=== PATIENT | male | born 1980 | race Caucasian/White ===

== ENCOUNTER → 2017-05-20 11:52 | Outpatient (CLI) | payer BC, SELFPAY ==
[2017-05-20 12:28] LABS: Basophils # 0.1 K/mm3 (0-0.2); Basophils % 0.8 % (0.1-2.0); Eosinophils # 0.1 K/mm3 (0.0-0.4); Eosinophils % 1.2 % (0.1-12.0); Hematocrit 48.5 % (42.0-52.0); Hemoglobin 15.6 g/dL (14.1-18.0); Lymphocytes # 3.1 K/mm3 (0.7-4.5); Lymphocytes % 47.3 K/mm3 (10-50); Mean Corpuscular HGB Conc 32.2 g/dL (31.8-35.4); Mean Corpuscular Volume 93.1 fl (80-94); Mean Platelet Volume 7.8 fl (7.4-10.4); Monocytes # 0.3 K/mm3 (0.1-1.0); Monocytes % 4.8 % (1.7-9.3); Neutrophils # 3.1 K/mm3 (1.8-7.8); Neutrophils % 45.9 % (37.0-80.0); Platelet Count 221 K/mm3 (142-424); Red Blood Count 5.21 M/mm3 (4.60-6.20); Red Cell Distribution Width 13.1 % (11.5-17.5); White Blood Count 6.6 K/mm3 (4.8-10.8)
[2017-05-20 12:57] LABS: Alanine Aminotransferase 83 U/L (12-78); Albumin Level 4.3 gm/dL (3.4-5.0); Albumin/Globulin Ratio 1.2 (1.1-1.8); Alkaline Phosphatase 91 U/L (46-116); Aspartate Amino Transferase 38 U/L (15-37); Bilirubin,Total 0.5 mg/dL (0.2-1.0); Blood Urea Nitrogen 12 mg/dL (7-18); Calcium 8.9 mg/dL (8.5-10.1); Carbon Dioxide 30 mmol/L (21.0-32.0); Chloride 102 mmol/L (98-107); Creatinine,Serum 1.16 mg/dL (0.70-1.30); Estimated Glomerular Filt Rate 70 ml/min (>60); GFR (African American) 85 ML/MIN (>60); Globulin 3.7 gm/dl (1.3-3.2); Glucose 94 mg/dL (74-106); Sodium 139 mmol/L (136-145); Thyroid Stimulating Hormone 1.31 uIU/ml (0.358-3.740); Uric Acid 4.5 mg/dL (2.6-7.2)
[2017-05-23 11:52] LABS: Vitamin B12 267 pg/mL (232-1245)
== END ==
PROVIDERS: PCP Internal Medicine; Visit Provider Internal Medicine
DX: I10 Essential (primary) hypertension (principal); E53.8 Deficiency of other specified B group vitamins; R25.1 Tremor, unspecified
CPT/HCPCS: 36415; 80053; 82607; 84443; 84550; 85025

== ENCOUNTER 2019-10-15 21:19 | Emergency (ER) | payer BC, SELFPAY ==
[2019-10-15 21:31] VITALS: BP 166/91; PULSE 80; RESP 16; TEMP 36.8; O2SAT 99; BMI 30.5
--- NOTE | 2019-10-15 21:35 | CT_ITS ---
PROCEDURE: CT ABDOMEN PELVIS WO CON CLINICAL INDICATION: Kidney stone Left flank pain. Rule out kidney stone. COMPARISON: ABDPELW/O CT ABD PELVIS W/O CONTRAST from 04/12/2016 TECHNIQUE: Axial images obtained with sagittal and coronal reformats. All CT scans at the facility use one or more dose reduction, viz: automated exposure control, ma/kV adjustment per patient size (including targeted exams where dose is matched to indication, i.e. head), or iterative reconstruction technique. FINDINGS: LOWER THORAX: No acute finding. Included extent of the lung bases are clear. ABDOMEN & PELVIS: Hepatobiliary: There is significantly decreased attenuation of the liver parenchyma consistent with moderately severe steatosis. No discrete hepatic lesion is identified. The gallbladder and bile ducts are within normal limits. Normal unenhanced pancreas. The spleen is not enlarged. The adrenal glands are normal. Kidneys, ureters and bladder: Both kidneys have a normal size and morphology. There is a 3 millimeter calculus is seen in the proximal left ureter causing mild dilatation of the left renal pelvis and calyces. There is no right hydronephrosis. The urinary bladder is incompletely distended. There is no right ureteral or bladder calculus identified. Gastrointestinal: The stomach and small bowel are normal with no obstruction or inflammation. The large bowel is within normal limits, with the exception of few sigmoid diverticula without evidence for diverticulitis. Appendix appears normal. Reproductive organs: Unremarkable as visualized. Lymphatic system: There is no adenopathy demonstrated within the abdomen/pelvis. Vasculature: Normal caliber abdominal aorta. Peritoneum: No significant fluid collection. No free intraperitoneal air. Abdominal wall and musculoskeletal: Soft tissues are within normal limits. No suspicious bone lesions. A stable sclerotic focus is identified in the proximal right femoral neck likely a small bone island. IMPRESSION: 1.A small 3 millimeter calculus is seen in proximal left ureter causing mild left hydronephrosis. Mild retroperitoneal fat stranding is noted surrounding this calculus. 2. Significant hepatic steatosis. 3. Essentially otherwise unremarkable noncontrast CT exam of the abdomen/pelvis. Dictated by: Teena Henriquez 10/16/2019 09:26 Electronically signed by Teena Henriquez in [place] 10/16/2019 09:26
[2019-10-15 21:54] LABS: Microscopic, Urine URINE MICROSCOPIC (MICROSCOPIC)
[2019-10-15 21:56] LABS: Appearance,Urine CLOUDY (Clear); Blood, Urine 3+ (Negative); Color,Urine RED (Yellow); Glucose,Urine (UA) Negative (Negative); Ketones,Urine Negative (Negative); Leukocyte Esterase,Urine Negative (Negative); Nitrate,Urine Negative (Negative); PH,Urine 6.5 (5.0-8.5); Protein,Urine 1+ (Negative); Specific Gravity, Urine 1.025 (1.005-1.030); Urobilinogen,Urine 0.2 EU/dl (0.2)
[2019-10-15 22:00] LABS: Bilirubin,Urine Negative (Negative)
[2019-10-15 22:01] LABS: Bacteria,Urine 1+ /lpf; RBC,Urine TNTC #/hpf (0-3)
[2019-10-15 22:11] VITALS: BP 154/94; PULSE 82; RESP 18; O2SAT 99
[2019-10-15 22:17] LABS: Alanine Aminotransferase 60 U/L (12-78); Albumin Level 4.5 g/dl (3.5-5.0); Albumin/Globulin Ratio 1.5 (1.1-1.8); Alkaline Phosphatase 99 U/L (38-126); Amylase 105 U/L (30-110); Anion Gap 14.4 mEq/L (5-15); Aspartate Amino Transferase 53 U/L (17-59); Bilirubin,Total 0.6 mg/dl (0.2-1.3); Blood Urea Nitrogen 17 mg/dl (9-20); Calcium 9.3 mg/dl (8.4-10.2); Carbon Dioxide 30 mmol/L (22.0-30.0); Chloride 99 mmol/L (98-107); Creatinine Clearance Estimated 128 mL/min (50-200); Estimated Glomerular Filt Rate 74 ml/min (>60); GFR (African American) 89 ML/MIN (>60); Glucose 109 mg/dl (74-100); Lipase 186 U/L (23-300); Potassium 3.4 mmoL/L (3.5-5.1); Sodium 140 mmol/L (136-145); Total Protein,Serum 7.5 g/dl (6.3-8.2)
[2019-10-15 22:18] LABS: Basophils # 0.1 K/mm3 (0-0.2); Basophils % 0.5 % (0.1-2.0); Eosinophils # 0.1 K/mm3 (0.0-0.4); Eosinophils % 1.2 % (0.1-12.0); Hematocrit 39.4 % (42.0-52.0); Hemoglobin 13.7 g/dL (14.1-18.0); Lymphocytes # 3.3 K/mm3 (0.7-4.5); Mean Corpuscular HGB Conc 34.8 g/dL (31.8-35.4); Mean Corpuscular Hemoglobin 31.4 pg (27.0-31.2); Mean Corpuscular Volume 90.2 fl (80-94); Mean Platelet Volume 8.7 fl (7.4-10.4); Monocytes # 0.4 K/mm3 (0.1-1.0); Monocytes % 3.7 % (1.7-9.3); Neutrophils # 6.7 K/mm3 (1.8-7.8); Neutrophils % 63.5 % (37.0-80.0); Platelet Count 207 K/mm3 (142-424); Red Blood Count 4.37 M/mm3 (4.60-6.20); Red Cell Distribution Width 13.2 % (11.5-17.5); White Blood Count 10.6 K/mm3 (4.8-10.8)
[2019-10-15 22:34] VITALS: BP 152/84; PULSE 80; RESP 18; O2SAT 99
--- NOTE | 2019-10-15 23:01 | HMH.EDABDPAI ---
ED Disposition Clinical Impression: Calculus of kidney Disposition: Home, Self-Care Condition on Discharge: Good Instructions: DI for Acute Abdomen Additional Instructions: These follow-up with Dr. Alberts tomorrow morning for an appointment. Referrals: Charlie Grant [Primary Care Provider] - Juan José Alberts MD [Staff Physician] - - Critical Care Critical Care Time: No Attestation: On 10/15/19, the high probability of a clinically significant, sudden or life threatening deterioration of the following system(s) required my full and direct attention, intervention and personal management. The time I documented below is in addition to time spent performing reported procedures but includes the following listed in this critical care notation. Medical Decision Making - Medical Records Medical records reviewed: Yes: I reviewed the patient's medical records. - Rk Inquiry Pt receiving controlled substance: No Vital Signs: 10/15/19 21:31 10/15/19 22:11 10/15/19 22:34 Temperature 98.3 F Temperature Source Oral Pulse Rate [Right Brachial] 80 82 80 Respiratory Rate 16 18 18 Blood Pressure [Right Arm] 166/91 H 154/94 H 152/84 H Blood Pressure Mean [Right Arm] 116 114 106 Blood Pressure Source [Right Arm] Automatic Cuff Automatic Cuff Automatic Cuff Blood Pressure Position [Right Arm] Sitting Sitting Sitting 02 Sat by Pulse Oximetry 99 99 99 Oxygen Delivery Method Room Air Room Air - Lab Data Lab results reviewed: Yes: I reviewed the patient's lab results. Lab Results 10/15/19 21:49: Urine Color Red, Urine Appearance Cloudy, Urine pH 6.5, Ur Specific [place] 1.025, Urine Protein 1+, Urine Glucose (UA) Negative, Urine Ketones Negative, Urine Blood 3+, Urine Nitrate Negative, Urine Bilirubin Negative, Urine Urobilinogen 0.2, Ur Leukocyte Esterase Negative, Urine RBC Tntc, Urine WBC 3-5, Urine Bacteria 1+ 10/15/19 22:00: WBC 10.6, RBC 4.37 L, Hgb 13.7 L, Hct 39.4 L, MCV 90.2, MCH 31.4 H, MCHC 34.8, RDW 13.2, Plt Count 207, MPV 8.7, Neut % (Auto) 63.5, Lymph % (Auto) 31.0, [place] % (Auto) 3.7, Eos % (Auto) 1.2, Baso % (Auto) 0.5, Neut # (Auto) 6.7, Lymph # (Auto) 3.3, [place] # (Auto) 0.4, Eos # (Auto) 0.1, Baso # (Auto) 0.1 10/15/19 22:00: Sodium 140, Potassium 3.4 L, Chloride 99, Carbon Dioxide 30, Anion Gap 14.4, BUN 17, Creatinine 1.10, Estimated Creat Clear 128, Estimated GFR 74, Est GFR ( Amer) 89, Glucose 109 H, Calcium 9.3, Total Bilirubin 0.6, AST 53, ALT 60, Alkaline Phosphatase 99, Total Protein 7.5, Albumin 4.5, Globulin 3.0, Albumin/Globulin Ratio 1.5, Amylase 105, Lipase 186 Result diagrams: 10/15/19 22:00 10/15/19 22:00 Orders (Tests/Meds): ED MEDICATIONS Generic Name Dose Route Start Last Admin Trade Name Freq PRN Reason Stop Dose Admin Sodium Chloride 1,000 mls @ 999 mls/hr 10/15/19 21:45 10/15/19 22:05 Sod Chlor 0.9% 1000ml Bag IV 10/15/19 22:45 999 mls/hr .Q1H1M KATERIN Administration Discontinued Medications Generic Name Dose Route Start Last Admin Trade Name Freq PRN Reason Stop Dose Admin Amlodipine Besylate 10 mg 10/16/19 09:00 Norvasc 10mg Tablet PO 11/15/19 08:59 DAILY KATERIN Amlodipine Besylate 10 mg 10/15/19 22:29 10/15/19 22:30 Norvasc 5mg Tablet PO 10/15/19 22:30 10 mg ONCE ONE Administration Ketorolac Tromethamine 30 mg 10/15/19 21:36 10/15/19 22:05 Toradol 30mg/Ml Vial IV 10/15/19 21:37 30 mg ONCE ONE Administration Ondansetron HCl 4 mg 10/15/19 21:36 10/15/19 22:05 Zofran 4mg/2ml Vial IV 10/15/19 21:37 4 mg ONCE ONE Administration Tamsulosin HCl 0.4 mg 10/16/19 21:00 Flomax 0.4mg Capsule PO 11/15/19 20:59 HS KATERIN Tamsulosin HCl 0.4 mg 10/16/19 22:28 Flomax 0.4mg Capsule PO 10/16/19 22:29 HS ONE Tamsulosin HCl 0.4 mg 10/15/19 22:31 10/15/19 22:32 Flomax 0.4mg Capsule PO 10/15/19 22:32 0.4 mg HS ONE Administration ORDERS Category Date Time Status CT abdomen pelvis wo
[2019-10-15 23:04] VITALS: BP 135/72; PULSE 84; RESP 18; O2SAT 99
[2019-10-15 23:30] VITALS: BP 151/82; PULSE 73; RESP 16; TEMP 36.8; O2SAT 99
== END 2019-10-15 23:33 | disposition home or self-care (01) ==
PROVIDERS: Emergency Provider Family Medicine; PCP Internal Medicine
DX: N13.2 Hydronephrosis with renal and ureteral calculous obstruction (principal); I10 Essential (primary) hypertension; Z79.899 Other long term (current) drug therapy
CPT/HCPCS: 74176; 80053; 81001; 82150; 83690; 85025; 96365; 96375; 99283; J2405

== ENCOUNTER → 2019-12-23 12:30 | Outpatient (CLI) | payer BC, SELFPAY | PROVIDERS: PCP Internal Medicine; Visit Provider Internal Medicine | DX: Z03.818 Encounter for observation for suspected exposure to other biological agents ruled out (principal) | CPT/HCPCS: U0003 ==

== ENCOUNTER → 2020-11-02 15:09 | Outpatient (CLI) | payer BC, SELFPAY ==
[2020-11-02 15:37] LABS: Coronavirus 19, PCR Not Detected (NotDetected); Influenza A, PCR Not Detected (NotDetected); Influenza B, PCR Not Detected (NotDetected)
== END ==
PROVIDERS: PCP Internal Medicine; Visit Provider Internal Medicine
DX: Z20.822 Contact with and (suspected) exposure to COVID-19 (principal)
CPT/HCPCS: U0003

== ENCOUNTER 2021-03-19 12:40 | Emergency (ER) | payer BC, SELFPAY ==
[2021-03-19 15:20] VITALS: BP 168/106; PULSE 104; RESP 18; TEMP 37.6; O2SAT 96; BMI 31.4
--- NOTE | 2021-03-19 15:22 | HMH.EDUTC ---
[facility] [place] Impression: Bronchitis, Viral syndrome Pharyngitis Qualifiers: Pharyngitis/tonsillitis etiology: unspecified etiology Qualified Code(s): J02.9 - Acute pharyngitis, unspecified Disposition: Home, Self-Care Condition on Discharge: Good Instructions: Preventing the Spread of Coronavirus Discharge Instructions, DI for COVID-19 (Suspected or Confirmed ), DI for Pharyngitis/Tonsillopharyngitis -- Adult Additional Instructions: Drink plenty of fluids. Take tylenol or ibuprofen for pain or fever. Take the medications as directed. Follow up with your regular doctor. GO TO THE ER FOR ANY WORSENING SYMPTOMS Quarantine until you know the results of your covid-19 test. If it is positive, the health department should call you and give you further instructions about your length of Quarantine and other things. Notify your school or workplace of your results and follow their instructions regarding return to work/school. Prescriptions: Promethazine/Dextromethorphan [Promethazine-Dm Syrup] 5 ml PO Q6HP PRN #240 ml PRN Reason: Cough Transmission Status: Pending to [facility] methylPREDNISolone [Medrol] 4 mg PO DIRECTED 6 Days #21 packet Transmission Status: Pending to Clinic Pharm[facility] Azithromycin [Z-Kervin 250mg Tab*] 250 mg PO UD DOSE PK #6 tab Transmission Status: Pending to Clinic [facility] Referrals: Charlie Grant [Primary Care Provider] - Time of Disposition: 16:03 Medical Decision Making - Medical Records Medical records reviewed: No: I reviewed the patient's medical records. - Rk Inquiry Pt receiving controlled substance: No Vital Signs: 03/19/21 15:20 Temperature 99.6 F Temperature Source Oral Pulse Rate [Left] 104 H Respiratory Rate 18 Blood Pressure [Right Arm] 168/106 H Blood Pressure Mean [Right Arm] 126 02 Sat by Pulse Oximetry 96 - Lab Data Lab results reviewed: Yes: I reviewed the patient's lab results. Lab Results 03/19/21 15:23: Influenza Type A Ag Negative, Influenza Type B Ag Negative 03/19/21 15:23: Strep Scn Rapid Clinic Negative Orders (Tests/Meds): ORDERS Category Date Time Status Full Resp Panel w/COVID ([facility]) Routine Lab 03/19/21 15:20 Received Strep Screen Confirmation Stat Micro 03/19/21 15:23 [place] [facility] [place] - General Stated complaint: fever, sore throat, cough Time Seen by Provider: 03/19/21 15:22 - History of Present Illness Provider Complaint: He states that for the past 3 days he has had chest and sinus congestion. He has a low grade fever and sore throat also. He has been vaccinated against covid-19. - Related Data Home Medications Medication Instructions Recorded Confirmed Bisoprolol/Hydrochlorothiazide 1 each PO DAILY 07/15/17 10/16/19 [Bisoprolol-Hctz 10-6.25 mg Tab] Buspirone HCl [Buspar 10mg 0 mg PO DAILY 07/15/17 10/16/19 tablet] Ergocalciferol (Vitamin D2) 400 unit PO WEEKLY 07/15/17 10/16/19 [Vitamin D] Losartan/Hydrochlorothiazide 1 each PO DAILY 07/15/17 10/16/19 [Losartan-Hctz 50-12.5 mg Tab] allopurinoL [Allopurinol 300mg 300 mg PO DAILY 07/15/17 10/16/19 tablet] Previous Rx's Medication Instructions Recorded Azithromycin [Z-Kervin 250mg Tab*] 250 mg PO UD DOSE PK #6 tab 03/19/21 Promethazine/Dextromethorphan 5 ml PO Q6HP PRN #240 ml 03/19/21 [Promethazine-Dm Syrup] methylPREDNISolone [Medrol] 4 mg PO DIRECTED 6 Days #21 03/19/21 packet Allergies Allergy/AdvReac Type Severity Reaction Status Date / Time No Known Allergies Allergy Verified 10/16/19 14:36 [facility] History - Hepatitis A Screen Attestation statement:: This patient has been screened for Hepatitis A risk factors. I have reviewed the patient's past medical history: Yes Medical History: Reports:: Hypertension Other Medical History: Reports: Arthritis Other Surgeries: Yes: No Previous Surgery Amputation: No Fractures: No - Social History Smoking Status: Never
[2021-03-19 15:35] LABS: UTC Influenza A Antigen Negative (Negative); UTC Strep Screen (Rapid) Negative (Negative)
[2021-03-19 15:36] LABS: Adenovirus,PCR Not Detected (NotDetected); Bordetella Pertussis Not Detected (NotDetected); Chlamydophila Pneumoniae, PCR Not Detected (NotDetected); Coronavirus 229E Not Detected (NotDetected); Coronavirus NL63 Not Detected (NotDetected); Coronavirus OC43 Not Detected (NotDetected); Coronovirus HKU1,PCR Not Detected (NotDetected); Human Metapneumovirus Not Detected (NotDetected); Influenza A, PCR Not Detected (NotDetected); Influenza AH1, 2009 Not Detected (NotDetected); Influenza AH1, PCR Not Detected (NotDetected); Influenza AH3,PCR Not Detected (NotDetected); Influenza B, PCR Not Detected (NotDetected); Mycoplasma Pneumoniae, PCR Not Detected (NotDetected); Parainfluenza 1, PCR Not Detected (NotDetected); Parainfluenza 2, PCR Not Detected (NotDetected); Parainfluenza 3, PCR Not Detected (NotDetected); Parainfluenza 4, PCR Not Detected (NotDetected); Respiratory Syncytial Virus Not Detected (NotDetected); Rhinovirus/Enterovirus Not Detected (NotDetected)
[2021-03-19 15:36] LABS: UTC Influenza B Antigen Negative (Negative)
[2021-03-19 16:28] VITALS: BP 168/106; PULSE 104; RESP 18; TEMP 37.6
[2021-03-19 17:39] LABS: Coronavirus 19, PCR Detected (NotDetected)
== END 2021-03-19 16:34 | disposition home or self-care (01) ==
PROVIDERS: Emergency Provider Nurse Practitioner Family; PCP Internal Medicine
DX: J20.9 Acute bronchitis, unspecified (principal); U07.1 COVID-19; I10 Essential (primary) hypertension
CPT/HCPCS: 87581; 87632; 87798; 87804; 87880; 96372; 99202; C9803; G0463; J0696; U0003; U0005

== ENCOUNTER 2021-03-20 11:55 | Outpatient (CLI) | payer BC, SELFPAY ==
[2021-03-20] VITALS (9 sets, daily range): BP systolic 118–141; BP diastolic 74–93; PULSE 58–71; RESP 18; TEMP 37; O2SAT 95–97
== END 2021-03-20 15:03 | disposition home or self-care (01) ==
LOC: COVID.OUT 11:56
PROVIDERS: PCP Internal Medicine; Visit Provider Nurse Practitioner Family
DX: U07.1 COVID-19 (principal); Z23 Encounter for immunization
CPT/HCPCS: 96365

== ENCOUNTER → 2021-11-15 12:04 | Outpatient (CLI) | payer BC, SELFPAY ==
[2021-11-15 13:27] LABS: Basophils # 0.1 K/mm3 (0-0.2); Basophils % 1.1 % (0.1-2.0); Eosinophils # 0.1 K/mm3 (0.0-0.4); Eosinophils % 1.7 % (0.1-12.0); Hematocrit 43.3 % (42.0-52.0); Hemoglobin 13.9 g/dL (14.1-18.0); Lymphocytes # 3.1 K/mm3 (0.7-4.5); Lymphocytes % 48.4 % (10-50); Mean Corpuscular HGB Conc 32.2 g/dL (31.8-35.4); Mean Corpuscular Hemoglobin 30.5 pg (27.0-31.2); Mean Corpuscular Volume 94.8 fl (80-94); Mean Platelet Volume 8.8 fl (7.4-10.4); Monocytes # 0.3 K/mm3 (0.1-1.0); Monocytes % 4.3 % (1.7-9.3); Neutrophils # 2.9 K/mm3 (1.8-7.8); Neutrophils % 44.5 % (37.0-80.0); Platelet Count 255 K/mm3 (142-424); Red Blood Count 4.57 M/mm3 (4.60-6.20); Red Cell Distribution Width 13.4 % (11.5-17.5); White Blood Count 6.5 K/mm3 (4.8-10.8)
[2021-11-15 14:06] LABS: Potassium 3.9 mmoL/L (3.5-5.1)
[2021-11-15 14:08] LABS: Alanine Aminotransferase 47 U/L (12-78); Albumin Level 4.5 g/dl (3.5-5.0); Alkaline Phosphatase 115 U/L (38-126); Aspartate Amino Transferase 46 U/L (17-59); Bilirubin,Total 0.4 mg/dl (0.2-1.3); Blood Urea Nitrogen 12 mg/dl (9-20); Carbon Dioxide 30 mmol/L (22.0-30.0); Estimated Glomerular Filt Rate 106 ml/min (>60); GFR (African American) 128 ML/MIN (>60); Globulin 2.3 g/dL (1.3-3.2); Total Protein,Serum 6.8 g/dl (6.3-8.2)
[2021-11-15 14:09] LABS: Calcium 9.1 mg/dl (8.4-10.2); Chol/HDL Ratio 6.6 (1-3.5); Cholesterol 204 mg/dl (140-200); Glucose 100 mg/dl (74-100); HDL Cholesterol 31 mg/dl (40-60); Triglycerides 166 mg/dl (30-150); VLDL Cholesterol 33 mg/dL (0-40)
[2021-11-15 14:46] LABS: Anion Gap 12.9 mEq/L (5-15); Chloride 103 mmol/L (98-107); Sodium 142 mmol/L (136-145)
[2021-11-18 08:20] LABS: Direct LDL Cholesterol 127 mg/dL (100-129)
== END ==
PROVIDERS: PCP Internal Medicine; Visit Provider Internal Medicine
DX: I10 Essential (primary) hypertension (principal); K76.0 Fatty (change of) liver, not elsewhere classified; E53.8 Deficiency of other specified B group vitamins; E78.5 Hyperlipidemia, unspecified; M10.9 Gout, unspecified
CPT/HCPCS: 80053; 80061; 84550; 85025

== ENCOUNTER → 2021-11-24 13:25 | Outpatient (CLI) | payer BC, SELFPAY ==
--- NOTE | 2021-11-24 13:28 | CA_ITS ---
APPROVED REPORT EXAM: Comprehensive 2D, Doppler, and color-flow Echocardiogram [employer] Lecturer: Dominique Sheldon RVT Ht: 6 ft 1 in Wt: 232lbs BSA: 2.29 BP: 136/90 mmHg Indications: HOLLIS,HTN 2D Dimensions LVOT 1.95 cm (M/F) 1.5-2.5 LA Volume 30.70 mL LA Volume Index 13.40 mL/m2 (M/F) 16-34 M-Mode Dimensions RVDd 3.31 cm (0.9-2.6) LA Diam 3.96 cm (1.9-4.0) LVDd 4.90 cm (3.5-5.7) Ao Diam 3.11 cm (2.0-3.7) LVDs 3.00 cm (3.5-5.7) IVSd 1.22 cm (0.6-1.1) PWd 1.03 cm (0.6-1.1) EF (Teich) 69.00% FS 38.80% EDV (Teich) 112.80 mL TAPSE 2.29 (<1.7) ESV (Teich) 35.00 mL LV Diastology E Decel Time 150.00 (160-240 msec) E/A Ratio 1.5 MED E' 8.20 (< 7 cm/sec) E'/MED E' Ratio 12.00 (>14) LAT E' 15.40 (<10 cm/sec) E/LAT E' Ratio 6.39 (>14) Aortic Valve AO Peak GR. 7.10 mmHg Mitral Valve MV E Max Sandro. 98.00 (40-130 cm/s) MV A Velocity 66.00 (40-130 cm/s) E/A Ratio 1.48 MV Decel. Time 150.00 (160-240 ms) MV PHT 44.00 ms Pulmonary Valve PV Peak Velocity 82.00 (50-150 cm/s) Tricuspid Valve TR P. Velocity 209.00 cm/s RAP Estimate 10.00 mmHg RVSP 27.40 mmHg Left Ventricle Left atrium is normal size, left ventricle is normal size, there is no concentric left ventricular hypertrophy, estimated ejection fraction 55% with no regional wall motion abnormality, diastolic parameters are within normal range. Right Ventricle Right atrium and right ventricle are normal size and contractility. Aortic Valve Aortic valve is grossly normal, there is no aortic stenosis or aortic insufficiency. Mitral Valve Mitral valve grossly normal, there is trace mitral regurgitation. Tricuspid Valve Tricuspid valve grossly normal, there is trace tricuspid regurgitation, tricuspid regurgitation jet velocity is inadequate for calculation of the right ventricular systolic pressure. Pulmonic Valve Pulmonic valve is poorly visualized. Great Vessels Aortic root is normal size. Inferior vena cava is normal size with normal inspiratory collapse. Pericardium No significant pericardial effusion noted. Conclusion 1. Normal left ventricular size preserved left ventricular systolic function, estimated ejection fraction 55% with no regional wall motion abnormality, diastolic parameters are within normal range. 2. Trace mitral and tricuspid regurgitation. 3. No significant pericardial effusion noted. 4. Inferior vena cava is normal size with normal inspiratory collapse. Electronically signed by : Carlos Weston MD 11/24/2021 14:37:26
== END ==
LOC: RT 13:26
PROVIDERS: PCP Internal Medicine; Visit Provider Internal Medicine
DX: R06.09 Other forms of dyspnea (principal); I10 Essential (primary) hypertension
CPT/HCPCS: 93306

== ENCOUNTER 2023-06-28 12:26 | Outpatient (CLI) | payer BC, SELFPAY ==
[2023-06-28 14:40] LABS: Basophils # 0.1 K/mm3 (0-0.2); Basophils % 1.3 % (0.1-2.0); Eosinophils # 0.1 K/mm3 (0.0-0.4); Eosinophils % 1.6 % (0.1-12.0); Hematocrit 45.7 % (42.0-52.0); Hemoglobin 14.5 g/dL (14.1-18.0); Lymphocytes # 3.5 K/mm3 (0.7-4.5); Lymphocytes % 51.2 % (10-50); Mean Corpuscular HGB Conc 31.7 g/dL (31.8-35.4); Mean Corpuscular Hemoglobin 30.5 pg (27.0-31.2); Mean Corpuscular Volume 96.2 fl (80-94); Mean Platelet Volume 8.6 fl (7.4-10.4); Monocytes # 0.4 K/mm3 (0.1-1.0); Monocytes % 6.1 % (1.7-9.3); Neutrophils # 2.7 K/mm3 (1.8-7.8); Neutrophils % 39.8 % (37.0-80.0); Platelet Count 256 K/mm3 (142-424); Red Blood Count 4.75 M/mm3 (4.60-6.20); Red Cell Distribution Width 13.4 % (11.5-17.5); White Blood Count 6.9 K/mm3 (4.8-10.8)
[2023-06-28 14:48] LABS: MANUAL DIFFERENTIAL MANUAL DIFFERENTIAL (MANUAL DIFF)
[2023-06-28 15:59] LABS: Alanine Aminotransferase 62 U/L (12-78); Albumin Level 4.5 g/dl (3.5-5.0); Albumin/Globulin Ratio 1.7 (1.1-1.8); Alkaline Phosphatase 104 U/L (38-126); Anion Gap 12.3 mEq/L (5-15); Aspartate Amino Transferase 57 U/L (17-59); Bilirubin,Total 0.7 mg/dl (0.2-1.3); Blood Urea Nitrogen 17 mg/dl (9-20); Calcium 9.2 mg/dl (8.4-10.2); Carbon Dioxide 30 mmol/L (22.0-30.0); Chloride 103 mmol/L (98-107); Chol/HDL Ratio 8.3 (1-3.5); Cholesterol 232 mg/dl (140-200); Estimated Glomerular Filt Rate 81 ml/min (>60); GFR (African American) 98 ML/MIN (>60); Globulin 2.6 g/dL (1.3-3.2); Glucose 89 mg/dl (74-100); HDL Cholesterol 28 mg/dl (40-60); Potassium 4.3 mmoL/L (3.5-5.1); Sodium 141 mmol/L (136-145); Total Protein,Serum 7.1 g/dl (6.3-8.2); Triglycerides 150 mg/dl (30-150); Uric Acid 5.1 mg/dl (3.5-8.5); VLDL Cholesterol 30 mg/dL (0-40)
[2023-06-28 16:11] LABS: Anisocytosis 1+; Eosinophils % 1 % (0-3); Hypochromasia 1+; Lymphocytes % 34 % (10-50); Monocytes % 4 % (2-9); Neutrophils % 61 % (42-76); Platelet Estimate Normal; Total Cells Counted 100
== END 2023-06-28 23:59 | disposition home or self-care (01) ==
LOC: LAB.DROPOF 12:27
PROVIDERS: PCP Internal Medicine; Visit Provider Internal Medicine
DX: Z79.899 Other long term (current) drug therapy (principal); Z68.32 Body mass index [BMI] 32.0-32.9, adult; F41.9 Anxiety disorder, unspecified; M10.9 Gout, unspecified; K76.0 Fatty (change of) liver, not elsewhere classified; E78.5 Hyperlipidemia, unspecified; I10 Essential (primary) hypertension
CPT/HCPCS: 80053; 80061; 84550; 85007; 85025

== ENCOUNTER 2024-09-14 10:53 | Outpatient (CLI) | payer BC, SELFPAY ==
[2024-09-14 19:43] LABS: Coronavirus 19, PCR Not Detected (NotDetected); Human Rhinovirus Not Detected (NotDetected); Influenza A, PCR Not Detected (NotDetected); Influenza B, PCR Not Detected (NotDetected); Respiratory Syncytial Virus Not Detected (NotDetected)
--- OUTSIDE RECORDS SUMMARY | 2024-09-16 10:57 | XMS_ITS ---
Author Organization Unknown Medications Medication Instructions Effective Dates (start - stop) Status allopurinol 300 MG Oral Tablet 2 [id number]:00:00.000+00 :00 - Completed losartan potassium 100 MG Or al Tablet [id number]:00:00.000+00 :00 - Completed amoxicillin 500 MG Oral Capsule [id number]:00:00.000+00 :00 - Completed allopurinol 300 MG Oral Tablet 2 [id number]:00:00.000+00 :00 - Completed allopurinol 300 MG Oral Tablet 2 [id number]:00:00.000+00 :00 - Completed escitalopram 10 MG Oral Tablet 2 [id number]:00:00.000+00 :00 - Completed allopurinol 300 MG Oral Tablet 2 [id number]:00:00.000+00 :00 - Completed escitalopram 10 MG Oral Tablet 2 [id number]:00:00.000+00 :00 - Completed losartan potassium 100 MG Or al Tablet [id number]:00:00.000+00 :00 - Completed losartan potassium 100 MG Or al Tablet [id number]:00:00.000+00 :00 - Completed allopurinol 300 MG Oral Tablet 2 [id number]:00:00.000+00 :00 - Completed allopurinol 300 MG Oral Tablet 2 483-92-34P43:00:00.000+00 :00 - Completed losartan potassium 100 MG Or al Tablet [id number]:00:00.000+00 :00 - Completed allopurinol 300 MG Oral Tablet 2 364-88-28K63:00:00.000+00 :00 - Completed allopurinol 300 MG Oral Tablet 2 [id number]:00:00.000+00 :00 - Completed losartan potassium 100 MG Or al Tablet [id number]:00:00.+00 :00 - Completed allopurinol 300 MG Oral Tablet [id number]:00:00.000+00 :00 - Completed pantoprazole 40 MG Delayed R elease Oral Tablet [id number]:00:00.+00 :00 - Completed bisoprolol fumarate 5 MG / hydrochlorothiazide 6.25 MG Oral Tablet [id number]::00.+00 :00 - Completed bisoprolol fumarate 5 MG / hydrochlorothiazide 6.25 MG Oral Tablet [id number]:00:00.+00 :00 - Completed bisoprolol fumarate 5 MG / hydrochlorothiazide 6.25 MG Oral Tablet [id number]::00.000+00 :00 - Completed amoxicillin 875 MG / clavula joann 125 MG Oral Tablet [id number]:00:00.+00 :00 - Completed bisoprolol fumarate 5 MG / hydrochlorothiazide 6.25 MG Oral Tablet [id number]::.+00 :00 - Completed bisoprolol fumarate 5 MG / hydrochlorothiazide 6.25 MG Oral Tablet [id number]::.+00 :00 - Completed citric acid 75 MG/ML / magne sium oxide 21.9 MG/ML / picosulfate sodium 0.0625 MG/ML Oral Solution [Clenpiq] [id number]:00:00.+00 :00 - Completed Patient Care team information Name Category Status Period Participants - - Proposed period not known -
== END 2024-09-14 23:59 | disposition home or self-care (01) ==
LOC: LAB.DROPOF 09-16 10:54
PROVIDERS: PCP Family Medicine; Visit Provider Family Medicine
DX: R50.9 Fever, unspecified (principal)
CPT/HCPCS: 87631

== ENCOUNTER 2024-11-14 15:15 | Observation (INO) | payer BC, SELFPAY ==
[2024-11-14] VITALS (17 sets, daily range): BP systolic 132–182; BP diastolic 75–103; PULSE 78–98; RESP 14–18; TEMP 36.8–37.3; O2SAT 2–100; BMI 72.6; BMI 32.9; BMI 33.1
--- NOTE | 2024-11-14 15:20 | ED_ITS ---
<Statement entered by Ricky Peck MD - 11/14/24 18:19> I was consulted by the MARJ, and we discussed the complexity of the problems being addressed. I approve the treatment and management plan for this patient's care in the emergency department, thus performing a substantive portion of the medical decision making. Ricky Peck MD Discharge Plan Disposition Patient Disposition: Admitted Condition: Fair Prescriptions Prescriptions: No Action prednisone 50 mg tablet 50 mg PO DAILY Qty: 5 0RF allopurinol 300 mg tablet See Rx Instructions .ROUTE .COMPLEX Qty: 90 1RF Dose Instruction: TAKE ONE TABLET BY MOUTH EVERY DAY Rx Instructions: TAKE ONE TABLET BY MOUTH EVERY DAY amoxicillin 500 mg tablet 500 mg PO TID Qty: 30 0RF losartan 100 mg tablet See Rx Instructions .ROUTE .COMPLEX Qty: 90 1RF Dose Instruction: TAKE ONE TABLET BY MOUTH EVERY DAY Rx Instructions: TAKE ONE TABLET BY MOUTH EVERY DAY bisoprolol-hydrochlorothiazide 5-6.25 mg tablet See Rx Instructions .ROUTE .COMPLEX Qty: 90 1RF Dose Instruction: TAKE ONE TABLET BY MOUTH EVERY DAY Rx Instructions: TAKE ONE TABLET BY MOUTH EVERY DAY Referrals Follow up/Referrals: Stephon Sen MD [Primary Care Provider, Internal Medicine] - See instructions Clinical Impressions Clinical Impression: Appendicitis Instructions Patient Instructions: DI for Acute Abdominal Pain Print Language Print Language: Kiswahili Discharge ED Provider: Ricky Peck Adult HPI <FATOU Pablo - Last Filed: 11/14/24 18:01> General Chief complaint: Abdominal Pain Stated complaint: Severe Abdominal Pain Time Seen by Provider: 11/14/24 15:17 Mode of Arrival: Ambulatory Source of Information: Patient and Spouse Limitations: No Limitations History of Present Illness HPI narrative: 44-year-old male presents to the emergency department accompanied by his spouse for a less than 24-hour history of midepigastric abdominal pain, describes it as cramping and burning . P.o. intake versus no p.o. intake does not worsen the patient's symptomatology, patient denies any fever or chills, denies any chest pain shortness of breath, denies any nausea vomiting denies any constipation diarrhea no urinary type symptomatology, patient is a non-smoker denies any alcohol or drug use, patient states that the pain started around 10 PM last night, improved, and worsened again at 5 AM, she he is taking Gas-X with little to no relief of his symptomatology, other past medical history consistent with diverticulosis, hypertension, gout, previous history of nephrolithiasis. Initial triage vitals unremarkable. Please note that above description of symptoms, in this electronic medical record under categorization of recalled from ER triage doctor by RN are reflective of an initial nursing assessment, however, is not reflective of my full history and physical exam that was personally taken and clarified. Consequentially, this preceding description of symptoms, which may include the patient's categorized chief complaint in the EMR, do not reflect my personal clinical impression, and the ultimate description of history of present illness and patient stated complaints should be deferred to this section of the note. Unless stated otherwise or congruent with this section of the note, additional signs, symptoms, or incongruence should be interpreted as inaccurate with my clinical impression. Onset (ago): hour(s) Related Data Previous Rx's ?Medication ?Instructions ?Recorded allopurinol 300 mg tablet See Rx Instructions .Route 0 05/19/24 .COMPLEX #90 tabs prednisone 50 mg tablet 50 mg PO DAILY #5 tabs 09/14 amoxicillin 500 mg tablet 500 mg PO TID #30 tabs 09/16 bisoprolol 5 See Rx Instructions .Route 0 11/02/24 mg-hydrochlorothiazide 6.25 mg .COMPLEX #90 tabs tablet losartan 100 mg tablet See Rx Instructions .Route 0 11/02/24 .COMPLEX #90 tabs Allergies Allergy/AdvReac Type Severity Reaction Status Date / Time No Known Allergies Allergy Verified 08/26/24 13:08 [facility] <FATOU Pablo - Last Filed: 11/14/24 18:01> [facility] Disclaimer: The information contained in this section may have been updated after the patient was seen, as this information can be updated by other users. Medical History Diverticulosis Gout Hypertension Calculus of kidney Family History Father Cancer prostate Social History Smoking Status: Never smoker second hand exposure: No alcohol intake: never substance use type: denies use current occupational status: employed Travel in the last 8 weeks?: None household members: significant other housing: house Have you lived/traveled outside US in past 30 days?: No Contact w/someone who lives/traveled outside US past 30 days?: No Exposure to someone with infectious disease in past 14 days?: No Do you have a fever (greater than 100.4 F or 38 C)?: No Have you tested positive for COVID-19?: No Exposed to someone with COVID-19 in past 14 days?: No Do you have a sore throat?: No Do you have a cough?: No Do you have any weakness?: No Do you have any diarrhea?: No Are you experiencing any unusual bleeding?: No Do you have any muscle aches/pain?: No Do you have any abdominal pain?: Yes Are you experiencing loss of taste or smell?: No Other Medical History Have you received the Flu Vaccine for this season: No Have you received the Pneumonia Vaccine: No <FATOU Pablo - Last Filed: 11/14/24 18:01> ROS Obtained: Yes All systems reviewed & no additional complaints except as documented Physical Exam <FATOU Pablo - Last Filed: 11/14/24 18:01> General General appearance: alert and in no apparent distress Head Head exam: atraumatic and normocephalic Eye Eye exam: Present PERRL and EOMI ENT ENT exam: Present mucous membranes moist Neck Neck exam: Present normal inspection Chest Chest inspection: Present normal inspection and symmetric chest wall rise Respiratory Respiratory exam: Present normal lung sounds bilaterally; Absent respiratory distress Cardiovascular Cardiovascular exam: Present regular rate and normal rhythm Abdominal Exam Abdominal exam: Present soft, tenderness and tenderness at McBurney's Point; Absent guarding, rebound, rigidity, normal bowel sounds, Duff's sign or Rovsing's sign Abdominal tenderness: Present epigastrium Extremities Exam Extremities exam: Present normal inspection Back Exam Back exam: Present CVA tenderness (R); Absent CVA tenderness (L) Neurological Exam Neurological exam: Present alert and oriented X3 Psychiatric Psychiatric exam: Present normal affect Skin Skin exam: Present warm and dry Medical Decision Making <FATOU Pablo - Last Filed: 11/14/24 18:01> Medical Records Medical records reviewed: Yes I reviewed the patient's medical records. Screening: Per USPSTF and CDC recommendations, given the prevalence of disease in our region, it is our hospital?s policy to screen for HIV and viral Hepatitis for all patients aged 18 and over and those with ongoing risk factors. Rk Inquiry Pt receiving controlled substance: Yes Rk was queried for this patient: No Reason not queried -: Emergent pt cond-no time Risks and benefits of using a controlled substance: were discussed with pt by me Vital Signs: 11/14/24 15:24 11/14/24 17:00 Temperature 98.3 F Temperature Source Oral Pulse Rate 78 Pulse Rate [Left Brachial] 94 H Respiratory Rate 18 Blood Pressure 170/103 H Blood Pressure [Left Arm] 152/96 H Blood Pressure Mean [Left Arm] 114 02 Sat by Pulse Oximetry 97 95 Oxygen Delivery Method Room Air Lab Data Lab results reviewed: Yes I reviewed the patient's lab results. Lab Results 11/14/24 15:30: Urine Color Yellow, Urine Appearance Clear, Urine pH 8.0, Ur Specific [place] 1.020, Urine Protein Negative, Urine Glucose (UA) Negative, Urine Ketones Negative, Urine Blood 1+ A, Urine Nitrate Negative, Urine Bilirubin Negative, Urine Urobilinogen 0.2, Ur Leukocyte Esterase Negative, Urine RBC Occasional, Urine WBC None, Ur Squamous Epith Cells None, Urine Bacteria None 11/14/24 16:02: WBC 13.1 H, RBC 4.76, Hgb 14.6, Hct 42.6, MCV 89.5, MCH 30.7, MCHC 34.3, RDW 12.6, Plt Count 195, MPV 9.9, Neut % (Auto) 74.3, Lymph % (Auto) 19.1, Bailey % (Auto) 5.5, Eos % (Auto) 0.3, Baso % (Auto) 0.5, Neut # (Auto) 9.7 H, Lymph # (Auto) 2.5, Bailey # (Auto) 0.7, Eos # (Auto) 0.0, Baso # (Auto) 0.1, Sodium 138, Potassium 3.8, Chloride 104, Carbon Dioxide 29, Anion Gap 8.8, BUN 11, Creatinine 1.00, Estimated Creat Clear 101, Estimated GFR 80, Est GFR ( Amer) 97, Glucose 107 H, Lactate 1.8, Calcium 9.1, Total Bilirubin 1.1, AST 47, ALT 49, Alkaline Phosphatase 90, Troponin I < 0.01, NT-Pro-B Natriuret Pep 29.0, Total Protein 7.7, Albumin 4.6, Globulin 3.1, Albumin/Globulin Ratio 1.5, Lipase 101, HIV Ag/Ab Combo Qual Negative 11/14/24 16:02 11/14/24 16:02 Orders (Tests/Meds): ED MEDICATIONS Discontinued Medications Generic Name Dose Route Start Last Admin Trade Name Freq PRN Reason Stop Dose Admin Iopamidol 75 ml 11/14/24 16:29 11/14/24 16:30 Iopamidol-370 (76%);100ml Bottle IV 11/14/24 16:30 75 ml ONCE ONE Administration Morphine Sulfate 4 mg 11/14/24 15:30 11/14/24 16:11 Morphine 4mg/Ml Syringe IV 11/14/24 15:31 4 mg ONCE ONE Administration Ondansetron HCl 4 mg 11/14/24 15:30 11/14/24 16:11 Ondansetron 4mg/2ml Vial IV 11/14/24 15:31 4 mg ONCE ONE Administration Sodium Chloride 10 ml 11/14/24 16:29 11/14/24 16:30 Sodium Chloride 0.9% 10ml Syr (Rad Only) IV 11/14/24 16:30 10 ml ONCE ONE Administration ORDERS Category Date Time Status CT abdomen pelvis w con Stat Cat Scan 11/14/24 15:29 Completed Consult to General Surgery [CONS] Stat Cons 11/14/24 17:21 Ordered Complete Blood Count Auto Diff Stat Lab 11/14/24 16:02 Completed Comprehensive Metabolic Panel Stat Lab 11/14/24 16:02 Completed HIV Combo Routine Lab 11/14/24 16:02 Completed Hepatitis C Ab Qual. W/ RFX Routine Lab 11/14/24 16:02 Received Lactic Acid Stat Lab 11/14/24 16:02 Completed Lipase Stat Lab 11/14/24 16:02 Completed NT Pro Brain Natriuretic Pep. Stat Lab 11/14/24 16:02 Completed Troponin I Q3H Lab 11/14/24 18:30 Ordered Troponin I Q3H Lab 11/14/24 21:30 Ordered Troponin I Stat Lab 11/14/24 16:02 Completed Urinalysis and Microscopic Stat Lab 11/14/24 15:30 Completed Medical Decision Narrative: 44-year-old male presents the emergency department with abdominal pain for less than 24 hours it is mid epigastric, differential diagnosis include but not limited to, diverticulitis, bowel obstruction, acute UTI, acute pyelonephritis, nephrolithiasis, ureterolithiasis, cholecystitis, cholelithiasis, choledocholithiasis, appendicitis, colitis, ileitis, gastritis, GERD among others. I discussed the patient's case with attending physician Will obtain basic laboratory studies lactic acid level lipase level, proBNP troponin, UA, EKG, CT abdomen pelvis with contrast, will give 4 mg IV Zofran and 4 mg of morphine for pain and nausea. CBC is notable for mild leukocytosis of 13.1 otherwise negative UA is for 1+ hematuria, negative leukocyte esterase, occasional RBCs, no bacteria, no nitrites. Of note, at around 4:15 PM was notified by nursing staff that the patient had what sounds like a flushing type reaction to morphine, patient states he felt hot , after receiving morphine administration. Will continue to monitor the patient. CMP is notable for normal lactic, normal lipase, otherwise unremarkable. Troponin within normal limits at less than 0.01. I reviewed the patient's CT abdomen pelvis with contrast and corresponding radiologic report, acute appendicitis, recommend surgical consultation, small volume free fluid in the David pelvis from severe hepatic steady is recommend correlation with liver function test. I discussed this patient's case with the general surgeon at approximately 5:18 PM, he recommends admission to the OR, most likely OR today for acute appendicitis. He states at this time did not start any prophylactic antibiotics as he and his team will take care of this once patient is prepped for OR suite. I discussed the results/plan with the patient family the bedside patient and family are in agreement with the current treatment plan/possible admission plan for acute appendicitis most likely OR today. I discussed this patient's case via messaging system/phone with the hospitalist at approximate 5:33 PM, he is aware if the patient is admitted after general surgery take the patient to the OR. He is in agreement with the current treatment plan/plan for OR. <Ricky Peck MD - Last Filed: 11/14/24 16:18> Vital Signs: 11/14/24 15:24 11/14/24 17:00 Temperature 98.3 F Temperature Source Oral Pulse Rate 78 Pulse Rate [Left Brachial] 94 H Respiratory Rate 18 Blood Pressure 170/103 H Blood Pressure [Left Arm] 152/96 H Blood Pressure Mean [Left Arm] 114 02 Sat by Pulse Oximetry 97 95 Oxygen Delivery Method Room Air Lab Data Lab Results 11/14/24 15:30: Urine Color Yellow, Urine Appearance Clear, Urine pH 8.0, Ur Specific [place] 1.020, Urine Protein Negative, Urine Glucose (UA) Negative, Urine Ketones Negative, Urine Blood 1+ A, Urine Nitrate Negative, Urine Bilirubin Negative, Urine Urobilinogen 0.2, Ur Leukocyte Esterase Negative, Urine RBC Occasional, Urine WBC None, Ur Squamous Epith Cells None, Urine Bacteria None 11/14/24 16:02: WBC 13.1 H, RBC 4.76, Hgb 14.6, Hct 42.6, MCV 89.5, MCH 30.7, MCHC 34.3, RDW 12.6, Plt Count 195, MPV 9.9, Neut % (Auto) 74.3, Lymph % (Auto) 19.1, Bailey % (Auto) 5.5, Eos % (Auto) 0.3, Baso % (Auto) 0.5, Neut # (Auto) 9.7 H, Lymph # (Auto) 2.5, Bailey # (Auto) 0.7, Eos # (Auto) 0.0, Baso # (Auto) 0.1, Sodium 138, Potassium 3.8, Chloride 104, Carbon Dioxide 29, Anion Gap 8.8, BUN 11, Creatinine 1.00, Estimated Creat Clear 101, Estimated GFR 80, Est GFR ( Amer) 97, Glucose 107 H, Lactate 1.8, Calcium 9.1, Total Bilirubin 1.1, AST 47, ALT 49, Alkaline Phosphatase 90, Troponin I < 0.01, NT-Pro-B Natriuret Pep 29.0, Total Protein 7.7, Albumin 4.6, Globulin 3.1, Albumin/Globulin Ratio 1.5, Lipase 101, HIV Ag/Ab Combo Qual Negative Orders (Tests/Meds): ED MEDICATIONS Discontinued Medications Generic Name Dose Route Start Last Admin Trade Name Freq PRN Reason Stop Dose Admin Iopamidol 75 ml 11/14/24 16:29 11/14/24 16:30 Iopamidol-370 (76%);100ml Bottle IV 11/14/24 16:30 75 ml ONCE ONE Administration Morphine Sulfate 4 mg 11/14/24 15:30 11/14/24 16:11 Morphine 4mg/Ml Syringe IV 11/14/24 15:31 4 mg ONCE ONE Administration Ondansetron HCl 4 mg 11/14/24 15:30 11/14/24 16:11 Ondansetron 4mg/2ml Vial IV 11/14/24 15:31 4 mg ONCE ONE Administration Sodium Chloride 10 ml 11/14/24 16:29 11/14/24 16:30 Sodium Chloride 0.9% 10ml Syr (Rad Only) IV 11/14/24 16:30 10 ml ONCE ONE Administration ORDERS Category Date Time Status CT abdomen pelvis w con Stat Cat Scan 11/14/24 15:29 Completed Consult to General Surgery [CONS] Stat Cons 11/14/24 17:21 Ordered Complete Blood Count Auto Diff Stat Lab 11/14/24 16:02 Completed Comprehensive Metabolic Panel Stat Lab 11/14/24 16:02 Completed HIV Combo Routine Lab 11/14/24 16:02 Completed Hepatitis C Ab Qual. W/ RFX Routine Lab 11/14/24 16:02 Received Lactic Acid Stat Lab 11/14/24 16:02 Completed Lipase Stat Lab 11/14/24 16:02 Completed NT Pro Brain Natriuretic Pep. Stat Lab 11/14/24 16:02 Completed Troponin I Q3H Lab 11/14/24 18:30 Ordered Troponin I Q3H Lab 11/14/24 21:30 Ordered Troponin I Stat Lab 11/14/24 16:02 Completed Urinalysis and Microscopic Stat Lab 11/14/24 15:30 Completed ECG Data Tracing #1: I reviewed this ECG and interpreted as documented below: Normal sinus rhythm. No ST elevation or depression. QTc normal at 398 Critical Care <FATOU Pablo - Last Filed: 11/14/24 18:01> Critical Care Time Critical Care Time: No
--- OUTSIDE RECORDS SUMMARY | 2024-11-14 15:23 | XMS_ITS | Clinical Summary ---
[facility] Address [address] [place] [address] Care Team Providers Care Drafting Supervisor Name Role Phone Charlie Grant MD Primary Care Provider [phone] Allergies No known active allergies Medications allopurinol (ZYLOPRIM) 300 MG tablet Take 300 mg by mouth Daily. 9 Active bisoprolol-hydrochl orothiazide (ZIAC) 5-6.25 MG per tablet Take 1 tablet by mouth Daily. 9 Active losartan (COZAAR) 50 MG tablet Take 50 mg by mouth Daily. 9 Active ondansetron ODT (ZOFRAN-ODT) 4 MG disintegrating tablet Take 1 tablet by mouth Every 8 (Eight) Hours As Needed for Nausea or Vomiting. 8 tablet 0 Active Social History Tobacco Use Types Packs/Day Years Used Date Smoking Tobacco: Never Smokeless Tobacco: Never Alcohol Use Standard Drinks/Week Comments Never 0 (1 standard drink = 0.6 oz pur e alcohol) AUDIT-C Answer Date Recorded Frequency of Alcohol Consumption Never 03/30/2019 Average Number of Drinks Not on file 020 Frequency of Binge Drinking Not on file 03/18 Abuse Screen Answer Date Recorded Unsafe at Home or Work/School Not on file Feels Threatened by Someone? Not on file 02/2023 Does Anyone Keep You from Co ntacting Others or Doint Things Outside the Home? Not on file 12/27/2022 Physical Sign of Abuse Present Not on file 1 Housing Stability Answer Date Recorded Current Living Arrangements Not on file 12/16 Potentially Unsafe Housing Conditions Not on ivonne e 12/27/2022 Family and Community Support Answer Oneil e Recorded Help with Day-to-Day Activities Not on file 12/27/2022 Lonely or Isolated Not on file 12/27/2022 Employment Answer Date Recorded Do you want help finding or keeping work or a shannan b? Not on file 12/27/2022 Disabilities Answer Date Recorded Concentrating, Remembering, or Making Decisions Difficulty Not on file 12/27/2022 Doing Errands Independently Difficulty Not on fi le 12/27/2022 Education Answer Date Recorded Help with school or training? Not on file Preferred Language Not on file 12/27/2022 Sex and Gender Information Value Date Recorded Sex Assigned at Not on file Legal Sex Male 5:54 PM EST Gender Identity Not on file Sexual Orientation Not on file Last Filed Vital Signs Vital Sign Reading Time Taken Comments Blood Pressure 128/90 03/30/2019 6:47 PM EST Pulse 109 03/30/2019 6:47 PM EST Temperature 36.8 C (98.3 F) 03/30/2019 6:47 PM EST Respiratory Rate 20 03/30/2019 6:47 PM EST Oxygen Saturation 96% 03/30/2019 6:47 PM EST Inhaled Oxygen Concentration - - Weight 105 kg (231 lb) 03/30/2019 6:47 PM EST Height 185.4 cm (6' 1 ) 03/30/2019 6:47 PM EST Body Mass Index 30.48 03/30/2019 6:47 PM EST Plan of Treatment Health Maintenance Due Date Last Done Comments TDAP/TD VACCINES (1 - Tdap) 1997 ANNUAL PHYSICAL 03/30/2019 HEPATITIS C SCREENING 03/30/2019 COLOGUARD 2023 COLON CANCER SCREENING 5 YEA R SIGMOIDOSCOPY 2023 COLONOSCOPY 2023 COLORECTAL CANCER SCREENING 2023 CT COLONOGRAPHY 2023 FECAL OCCULT BLOOD TEST 2023 FIT Testing (1 year) 2023 COVID-19 Vaccine ( - 2023-2 5 season) 2023 INFLUENZA VACCINE 12/16/2024 Pneumococcal Vaccine 0-49 Aged Out No longer eligible based on patient's age to complete this topic Insurance [employer] Care Teams Drafting Supervisor Relationship Specialty Start Date End Date Charlie Grant MD [address] [facility] [address] [facility] [place] [id number] PCP - General Internal Medicine 03/30/19
--- NOTE | 2024-11-14 15:29 | CT_ITS ---
PROCEDURE INFORMATION: Exam: CT Abdomen And Pelvis With Contrast Exam date and time: 11/14/2024 4:31 PM Age: 44 years old Clinical indication: Abdominal pain; Additional info: Midepigastric pain TECHNIQUE: Imaging protocol: Computed tomography of the abdomen and pelvis with contrast. Radiation optimization: All CT scans at this facility use at least one of these dose optimization techniques: automated exposure control; mA and/or kV adjustment per patient size (includes targeted exams where dose is matched to clinical indication); or iterative reconstruction. Contrast material: ISOVUE; Contrast volume: 75 ml; Contrast route: IV; COMPARISON: CT ABDOMEN PELVIS WO CON 10/15/2019 9:47 PM FINDINGS: Lungs: Bilateral dependent pulmonary atelectasis is demonstrated within the lungs. Liver: Liver demonstrates diffuse severe hypodensity. Gallbladder and biliary ducts: Unremarkable. No calcified stones. No ductal dilation. Pancreas: Unremarkable. Spleen: Unremarkable. No splenomegaly. Adrenal glands: Normal. No mass. Kidneys and ureters: Unremarkable. No hydronephrosis or calculi. Stomach and bowel: Unremarkable. No obstruction, ileus or definite inflammation. Appendix: The appendix appears abnormal, compatible with acute appendicitis. Adjacent edema. No evidence for free air or well defined abscess. Distended appendix within the right upper pelvis measures up to 16 mm diameter. Diffuse appendix wall thickening with edema. Likely proximal appendix stone. Adjacent free fluid. Intraperitoneal space: Moderate to severe right-sided pelvic mesenteric edema. Small volume of intraperitoneal fluid identified in the right pelvis. No significant intraperitoneal well-defined fluid collection or air identified. Vasculature: Calcifications in the pelvis, most compatible with phleboliths. Lymph nodes: No enlarged lymph nodes. Urinary bladder: Unremarkable as visualized. Reproductive: Unremarkable as visualized. Bones/joints: Mild generalized bony degenerative changes. Bony structures appear otherwise unremarkable. Soft tissues: Unremarkable. IMPRESSION: 1. Acute appendicitis, as described above. Recommend surgical consultation. 2. Small volume free fluid within the right pelvis. 3. Severe hepatic steatosis. Recommend correlation with liver function tests.
[2024-11-14 15:36] LABS: Microscopic, Urine URINE MICROSCOPIC (MICROSCOPIC)
[2024-11-14 15:43] LABS: Bilirubin,Urine Negative (Negative); Color,Urine YELLOW (Yellow); Glucose,Urine (UA) Negative (Negative); Ketones,Urine Negative (Negative); Leukocyte Esterase,Urine Negative (Negative); PH,Urine 8.0 (5.0-8.5); Protein,Urine Negative (Negative); Specific Gravity, Urine 1.020 (1.005-1.030); Urobilinogen,Urine 0.2 EU/dl (0.2)
[2024-11-14 15:54] LABS: RBC,Urine Occasional #/hpf (0-3)
--- NOTE | 2024-11-14 16:09 | ECG_ITS ---
APPROVED REPORT Exam: Resting ECG HR:85 bpm ECG Measurements Heart Rate 85 AXES NM 170 P 50 QRSd 92 QRS 33 QT 356 T 19 QTc 398 Conclusion SINUS RHYTHM NONSPECIFIC T-WAVE ABNORMALITY BORDERLINE ECG UNCONFIRMED REPORT Electronically signed by : NADIA LOPEZ, 11/16/2024 05:06:35
[2024-11-14] MEDS: ONDANSETRON 4MG/2ML VIAL 4 MG IV (16:11)
[2024-11-14] MEDS: MORPHINE 4MG/ML SYRINGE 4 MG IV (16:11)
[2024-11-14 16:13] LABS: Hematocrit 42.6 % (42.0-52.0); Hemoglobin 14.6 g/dL (14.1-18.0); Immature Granulocytes % 0.3 %; Mean Corpuscular HGB Conc 34.3 g/dL (31.8-35.4); Mean Corpuscular Hemoglobin 30.7 pg (27.0-31.2); Mean Corpuscular Volume 89.5 fl (80-94); Nucleated Red Blood Cells % 0 %; Platelet Count 195 K/mm3 (142-424); Red Blood Count 4.76 M/mm3 (4.60-6.20); Red Cell Distribution Width-SD 42.1 fL; White Blood Count 13.1 K/mm3 (4.8-10.8)
[2024-11-14 16:18] LABS: Albumin Level 4.6 g/dl (3.5-5.0); Chloride 104 mmol/L (98-107); Potassium 3.8 mmoL/L (3.5-5.1); Sodium 138 mmol/L (136-145)
[2024-11-14 16:21] LABS: Alanine Aminotransferase 49 U/L (12-78); Albumin/Globulin Ratio 1.5 (1.1-1.8); Alkaline Phosphatase 90 U/L (38-126); Anion Gap 8.8 mEq/L (5-15); Aspartate Amino Transferase 47 U/L (17-59); Bilirubin,Total 1.1 mg/dl (0.2-1.3); Blood Urea Nitrogen 11 mg/dl (9-20); Calcium 9.1 mg/dl (8.4-10.2); Carbon Dioxide 29 mmol/L (22.0-30.0); Creatinine Clearance Estimated 101 mL/min (50-200); Creatinine,Serum 1.00 mg/dl (0.66-1.25); Estimated Glomerular Filt Rate 80 ml/min (>60); GFR (African American) 97 ML/MIN (>60); Globulin 3.1 g/dL (1.3-3.2); Glucose 107 mg/dl (74-100); Lipase 101 U/L (23-300); Total Protein,Serum 7.7 g/dl (6.3-8.2)
[2024-11-14] MEDS: SODIUM CHLORIDE 0.9% 10ML SYR (RAD ONLY) 10 ML IV (16:30)
[2024-11-14] MEDS: IOPAMIDOL-370 (76%);100ML BOTTLE 75 ML IV (16:30)
[2024-11-14 16:31] LABS: NT Pro Brain Natriuretic Pep. 29.0 pg/mL (0-125)
[2024-11-14 16:41] LABS: Troponin I < 0.01 ng/ml (0.00-0.034)
--- NOTE | 2024-11-14 17:23 | PC.NURSE ---
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
--- NOTE | 2024-11-14 17:44 | PC.NURSE ---
bedside speaking with the pt
[2024-11-14 17:58] LABS: Hepatitis C Ab Qual. W/ RFX NEGATIVE (Negative)
--- NOTE | 2024-11-14 18:04 | EXP.GEN.HP ---
HPI HPI HPI: This is a 44-year-old gentleman who presented to the emergency department with increasing abdominal pain. Evaluation included a CT scan that revealed changes consistent with appendicitis. Surgical service was consulted for evaluation and management. Forwarded from emergency department evaluation: HPI narrative: 44-year-old male presents to the emergency department accompanied by his spouse for a less than 24-hour history of midepigastric abdominal pain, describes it as cramping and burning . P.o. intake versus no p.o. intake does not worsen the patient's symptomatology, patient denies any fever or chills, denies any chest pain shortness of breath, denies any nausea vomiting denies any constipation diarrhea no urinary type symptomatology, patient is a non-smoker denies any alcohol or drug use, patient states that the pain started around 10 PM last night, improved, and worsened again at 5 AM, she he is taking Gas-X with little to no relief of his symptomatology, other past medical history consistent with diverticulosis, hypertension, gout, previous history of nephrolithiasis. Initial triage vitals unremarkable. [facility] Disclaimer: The information contained in this section may have been updated after the patient was seen, as this information can be updated by other users. Medical History (Updated 11/14/24 @ 18:08 by Vaughn Llamas MD) Renal calculus Diverticulosis Gout Hypertension Family History Father Cancer prostate Social History Smoking Status: Never smoker second hand exposure: No alcohol intake: never substance use type: denies use current occupational status: employed Travel in the last 8 weeks?: None household members: significant other housing: house Have you lived/traveled outside US in past 30 days?: No Contact w/someone who lives/traveled outside US past 30 days?: No Exposure to someone with infectious disease in past 14 days?: No Do you have a fever (greater than 100.4 F or 38 C)?: No Have you tested positive for COVID-19?: No Exposed to someone with COVID-19 in past 14 days?: No Do you have a sore throat?: No Do you have a cough?: No Do you have any weakness?: No Do you have any diarrhea?: No Are you experiencing any unusual bleeding?: No Do you have any muscle aches/pain?: No Do you have any abdominal pain?: Yes Are you experiencing loss of taste or smell?: No Other Medical History Have you received the Flu Vaccine for this season: No Have you received the Pneumonia Vaccine: No Review of Systems Review of Systems Review of systems:: pertinent systems reviewed and negative unless documented below *Gastrointestinal Gastrointestinal: Reports as per [facility] Meds Home Medications and Allergies Home Medications ?Medication ?Instructions ?Recorded ?Confirmed ?Type allopurinol 300 mg tablet See Rx Instructions .Route 05/19/24 09/14/24 Rx .COMPLEX #90 tabs prednisone 50 mg tablet 50 mg PO DAILY #5 tabs 09/14/24 09/14/24 Rx amoxicillin 500 mg tablet 500 mg PO TID #30 tabs 09/16/24 Rx bisoprolol 5 See Rx Instructions .Route 11/02/24 Rx mg-hydrochlorothiazide 6.25 mg .COMPLEX #90 tabs tablet losartan 100 mg tablet See Rx Instructions .Route 11/02/24 Rx .COMPLEX #90 tabs New Prescriptions to Start Prescriptions: Allergies Allergy/AdvReac Type Severity Reaction Status Date / Time No Known Allergies Allergy Verified 08/26/24 13:08 Exam Data for Last 24 hours Vital signs and Labs for Last 24 Hours: Temp Pulse Resp BP Pulse Ox O2 Del Method 98.3 F 78 18 170/103 H 95 Room Air 11/14/24 15:24 11/14/24 17:00 11/14/24 15:24 11/14/24 17:00 11/14/24 17:00 11/14/24 15:24 Laboratory Results - last 24 hr 11/14/24 15:30: Urine Color Yellow, Urine Appearance Clear, Urine pH 8.0, Ur Specific [place] 1.020, Urine Protein Negative, Urine Glucose (UA) Negative, Urine Ketones Negative, Urine Blood 1+ A, Urine Nitrate Negative, Urine Bilirubin Negative, Urine Urobilinogen 0.2, Ur Leukocyte Esterase Negative, Urine RBC Occasional, Urine WBC None, Ur Squamous Epith Cells None, Urine Bacteria None 11/14/24 16:02: WBC 13.1 H, RBC 4.76, Hgb 14.6, Hct 42.6, MCV 89.5, MCH 30.7, MCHC 34.3, RDW 12.6, Plt Count 195, MPV 9.9, Neut % (Auto) 74.3, Lymph % (Auto) 19.1, [place] % (Auto) 5.5, Eos % (Auto) 0.3, Baso % (Auto) 0.5, Neut # (Auto) 9.7 H, Lymph # (Auto) 2.5, [place] # (Auto) 0.7, Eos # (Auto) 0.0, Baso # (Auto) 0.1, Sodium 138, Potassium 3.8, Chloride 104, Carbon Dioxide 29, Anion Gap 8.8, BUN 11, Creatinine 1.00, Estimated Creat Clear 101, Estimated GFR 80, Est GFR ( Amer) 97, Glucose 107 H, Lactate 1.8, Calcium 9.1, Total Bilirubin 1.1, AST 47, ALT 49, Alkaline Phosphatase 90, Troponin I < 0.01, NT-Pro-B Natriuret Pep 29.0, Total Protein 7.7, Albumin 4.6, Globulin 3.1, Albumin/Globulin Ratio 1.5, Lipase 101, HIV Ag/Ab Combo Qual Negative I & O for Last 24 hours: Intake & Output 11/12/24 11/13/24 11/14/24 11/15/24 11:59 11:59 11:59 11:59 Weight 243 lb Constitutional Constitutional: no acute distress *Routine HEENT Exam Head: Present normocephalic Eye: Present EOMI ENT: Present mucous membranes moist *Routine Neck Exam Neck: Present full ROM *Routine Respiratory Exam Respiratory: Absent respiratory distress *Routine Cardiovascular Exam Cardiovascular: Absent tachycardia *Routine Abdominal Exam Abdominal: Present soft and tenderness *Routine Rectal Exam Rectal:: deferred *Routine Genitalia Exam Genitalia:: deferred *Routine Extremities Exam Extremities: Present full ROM *Routine Skin Exam Skin: Absent erythema *Routine Neurological Exam Neurological: Present alert Results Results Lab Results Last 24 Hours:: Laboratory Results - last 24 hr 11/14/24 15:30: Urine Color Yellow, Urine Appearance Clear, Urine pH 8.0, Ur Specific [place] 1.020, Urine Protein Negative, Urine Glucose (UA) Negative, Urine Ketones Negative, Urine Blood 1+ A, Urine Nitrate Negative, Urine Bilirubin Negative, Urine Urobilinogen 0.2, Ur Leukocyte Esterase Negative, Urine RBC Occasional, Urine WBC None, Ur Squamous Epith Cells None, Urine Bacteria None 11/14/24 16:02: WBC 13.1 H, RBC 4.76, Hgb 14.6, Hct 42.6, MCV 89.5, MCH 30.7, MCHC 34.3, RDW 12.6, Plt Count 195, MPV 9.9, Neut % (Auto) 74.3, Lymph % (Auto) 19.1, [place] % (Auto) 5.5, Eos % (Auto) 0.3, Baso % (Auto) 0.5, Neut # (Auto) 9.7 H, Lymph # (Auto) 2.5, [place] # (Auto) 0.7, Eos # (Auto) 0.0, Baso # (Auto) 0.1, Sodium 138, Potassium 3.8, Chloride 104, Carbon Dioxide 29, Anion Gap 8.8, BUN 11, Creatinine 1.00, Estimated Creat Clear 101, Estimated GFR 80, Est GFR ( Amer) 97, Glucose 107 H, Lactate 1.8, Calcium 9.1, Total Bilirubin 1.1, AST 47, ALT 49, Alkaline Phosphatase 90, Troponin I < 0.01, NT-Pro-B Natriuret Pep 29.0, Total Protein 7.7, Albumin 4.6, Globulin 3.1, Albumin/Globulin Ratio 1.5, Lipase 101, HIV Ag/Ab Combo Qual Negative CT scan - abdomen: report reviewed and image reviewed CT scan - pelvis: report reviewed and image reviewed Assessment and Plan *Assessment and plan (1) Appendicitis: Status: Acute Qualifiers: Appendicitis type: acute appendicitis Acute appendicitis type: with localized peritonitis Appendicitis gangrene presence: without gangrene Appendicitis perforation presence: without perforation Appendicitis abscess presence: without abscess Qualified Code(s): K35.30 - Acute appendicitis with localized peritonitis, without perforation or gangrene Category: Medical Code(s): K37 - Unspecified appendicitis Plan: Laparoscopic appendectomy I have discussed the risks and benefits including, but not limited to: Bleeding Infection Damage to surrounding tissue Inherent risks of sedation The patient agrees to proceed. (2) Hypertension: Status: Chronic Qualifiers: Hypertension type: unspecified Qualified Code(s): I10 - Essential (primary) hypertension Category: Medical Code(s): I10 - Essential (primary) hypertension (3) Hepatic steatosis: Status: Acute Category: Medical Code(s): K76.0 - Fatty (change of) liver, not elsewhere classified (4) Epigastric pain: Status: Acute Category: Medical Code(s): R10.13 - Epigastric pain (5) Generalized abdominal pain: Status: Deleted Category: Medical Code(s): R10.84 - Generalized abdominal pain
[2024-11-14] MEDS: HYDROMORPHONE 2MG/ML SYRINGE 0.5 MG IV (18:16)
--- NOTE | 2024-11-14 18:31 | EXP.OP.NOTE ---
Date of procedure: 11/14/24 Pre-op Diagnosis:: Appendicitis Post-op Diagnosis:: Same Procedure performed:: Laparoscopic appendectomy Surgeon:: Vaughn Llamas MD PERLITE GRINDER:: Dulce Maria Carias Anesthesia: GETA Estimated blood loss (mL): 15 Operative findings:: Profound appendiceal enlargement Profound inflammatory changes throughout appendix Profound adhesions to surrounding tissue including right lateral sidewall, colon, and small bowel Suppurative changes noted throughout No definitive evidence of perforation Operative note:: After informed consent was obtained the patient was taken to the operating room and placed in the supine position. General anesthesia was induced and he is abdomen was prepped and draped in a sterile fashion. After infiltration with local anesthetic a supraumbilical incision was made. A Veress needle was placed in position. The abdomen was insufflated. Under direct visualization a 5 mm trocar was placed in the suprapubic position and an additional 5 mm trocar was placed in the left lower quadrant. Evaluation of the right lower quadrant revealed profound inflammatory changes. The appendix was carefully elevated. Severe enlargement and adhesions to the surrounding tissue including right lateral sidewall, colon and small bowel were noted. Combination of blunt dissection and harmonic olive were utilized to transect the surrounding tissue. No definitive evidence of perforation or abscess collection noted. The mesoappendix was taken with harmonic olive. The base of the appendix was stapled with the Endopath 45 device. The appendix was placed in a retrieval bag and removed through the supraumbilical trocar site. The right lower quadrant was thoroughly irrigated. No active bleeding or sign of injury was noted. Pneumoperitoneum was released as the trocars were removed. Fascia at the infraumbilical trocar site was reapproximated utilizing 0 Ethibond. All wounds were irrigated and skin was closed with 4-0 Monocryl in an interrupted mattress fashion to facilitate hemostasis. Dressings were applied and the patient was transferred to recovery in stable condition after extubation. Condition: stable Disposition: PACU Specimens:: Appendix Complications:: No immediate
[2024-11-14] MEDS: LIDOCAINE 1% 20ML MDV 20 ML (18:57)
--- NOTE | 2024-11-14 19:06 | EXP.ANES.CKL ---
[facility] Disclaimer: The information contained in this section may have been updated after the patient was seen, as this information can be updated by other users. Medical History Renal calculus Diverticulosis Gout Hypertension Family History Father Cancer Social History Smoking Status: Never smoker second hand exposure: No alcohol intake: never substance use type: denies use current occupational status: employed Travel in the last 8 weeks?: None household members: significant other housing: house Have you lived/traveled outside US in past 30 days?: No Contact w/someone who lives/traveled outside US past 30 days?: No Exposure to someone with infectious disease in past 14 days?: No Do you have a fever (greater than 100.4 F or 38 C)?: No Have you tested positive for COVID-19?: No Exposed to someone with COVID-19 in past 14 days?: No Do you have a sore throat?: No Do you have a cough?: No Do you have any weakness?: No Do you have any diarrhea?: No Are you experiencing any unusual bleeding?: No Do you have any muscle aches/pain?: No Do you have any abdominal pain?: Yes Are you experiencing loss of taste or smell?: No [facility] Anesthesia Checklist Patient Identification Patient Identification: Arm Band and Verbal (Name & ) Structural Data Admitted From: Emergency Dept Planned Operative Procedure/s: lap appy Consent for Planned Operative Procedure(s) Verified: Yes Verified Documents: Surgical Consent and History and Physical NPO Status Verified Time NPO: 10:00 Additional verifications Anesthesia Reactions: No Airway Assessment Mallampati Score:: Class I Dentition: Good Dentition Neurological Assessment Level of Consciousness: Awake, Alert and Appropriate Hx Seizures: No Numbness or tingling in extremities: No Anesthesia Plan Anesthesia Risk discussed: Yes Anesthesia Plan: Verified ASA Class: II Anesthesia Type: General
[2024-11-14] MEDS: METRONIDAZ/SOD CHL 500 MG/100 ML PIGGYBACK 100 MG IV (19:18)
--- NOTE | 2024-11-14 20:29 | P.PNANES_ITS ---
[facility] Anesthesia Record Part I Anesthesia Record I Intake, IV Amount: 1,200 Hydration: Adequate Estimated blood loss (mL): 10 Urine output (mL): 150 Blood Products used (#): none Blood Pressure: 133/94 SaO2: 100 Pulse Rate: 93 Airway Patency: Patent Respiratory Rate: 18 Temperature: 98.7 F Patient is:: Awake, Nasal O2 and Stable Stable to PACU at:: 20:27
--- NOTE | 2024-11-14 20:59 | SUR.PHASEI ---
2046- Patient alert but drowsy. VSS. No complaints of pain. #lap sites clean,dry and intact. 2047- Report called to Joshua austin RN. 2049- Patient transported via bed to med/surg room . Joshua austin RN at bedside upon arrival. Patient in stable condition.
--- NOTE | 2024-11-14 21:01 | PC.NURSE ---
Patient arrived to floor via stretcher from OR at 20:56.
--- NOTE | 2024-11-14 21:02 | SUR.OPER ---
2011- Damian discontinued. No complications noted.
[2024-11-14 21:18] LABS: Microscopic, Urine URINE MICROSCOPIC (MICROSCOPIC)
[2024-11-14 21:23] LABS: Bilirubin,Urine Negative (Negative); Color,Urine YELLOW (Yellow); Glucose,Urine (UA) Negative (Negative); Ketones,Urine Negative (Negative); Leukocyte Esterase,Urine Negative (Negative); PH,Urine 7.5 (5.0-8.5); Protein,Urine Negative (Negative); Specific Gravity, Urine 1.010 (1.005-1.030); Urobilinogen,Urine 0.2 EU/dl (0.2)
[2024-11-14] MEDS: PIPERACILLIN/TAZO 4.5 GM in 0.9 % SODIUM CHLORIDE 100 ML IV (21:36)
[2024-11-14 21:58] LABS: Squamous Epithelial Cell,Urine Occasional #/hpf (0-5); WBC,Urine Occasional #/hpf (0-3)
[2024-11-14 22:42] LABS: Troponin I < 0.01 ng/ml (0.00-0.034)
[2024-11-15] MEDS: KETOROLAC 30MG/ML VIAL 30 MG IV (00:16)
[2024-11-15] MEDS: PIPERACILLIN/TAZO 4.5 GM in 0.9 % SODIUM CHLORIDE 100 ML IV ×2 (02:52→09:13)
[2024-11-15 04:00] VITALS: BP 125/77; PULSE 73; RESP 16; TEMP 36.4; O2SAT 97; BMI 33.0
[2024-11-15] MEDS: HYDROCODONE/APAP 5/325 MG TABLET 1 TAB PO ×2 (04:26→09:13)
[2024-11-15 06:43] LABS: Hematocrit 38.9 % (42.0-52.0); Immature Granulocytes % 0.7 %; Mean Corpuscular HGB Conc 33.2 g/dL (31.8-35.4); Mean Corpuscular Hemoglobin 30.2 pg (27.0-31.2); Mean Corpuscular Volume 91.1 fl (80-94); Nucleated Red Blood Cells % 0 %; Platelet Count 167 K/mm3 (142-424); Red Blood Count 4.27 M/mm3 (4.60-6.20); Red Cell Distribution Width-SD 43.2 fL; White Blood Count 12.5 K/mm3 (4.8-10.8)
[2024-11-15 06:58] LABS: Hemoglobin 12.9 g/dL (14.1-18.0)
[2024-11-15 07:34] VITALS: BP 131/73; PULSE 68; RESP 16; TEMP 36.6; O2SAT 96
[2024-11-15 07:39] LABS: Anion Gap 11.2 mEq/L (5-15); Blood Urea Nitrogen 14 mg/dl (9-20); Calcium 8.1 mg/dl (8.4-10.2); Carbon Dioxide 26 mmol/L (22.0-30.0); Chloride 102 mmol/L (98-107); Creatinine Clearance Estimated 131 mL/min (50-200); Creatinine,Serum 1.10 mg/dl (0.66-1.25); Estimated Glomerular Filt Rate 72 ml/min (>60); GFR (African American) 87 ML/MIN (>60); Glucose 122 mg/dl (74-100); Potassium 4.2 mmoL/L (3.5-5.1); Sodium 135 mmol/L (136-145)
--- NOTE | 2024-11-15 08:15 | HMH.PHAINT1 ---
Pharmacy Intervention Comments: MEDICATION RECONCILIATION COMPLETED ON PATIENT USING EXTERNAL FILL HISTORY FROM PHARMACY. -ERNESTO SALAS, JEND
--- NOTE | 2024-11-15 08:32 | EXP.SURG.PN ---
Subjective Patient reports: no new complaints Narrative: He continues to have soreness along the mid and lower abdomen. Exam Data for Last 24 hours Vital signs and Labs for Last 24 Hours: Temp Pulse Resp BP Pulse Ox O2 Del Method O2 Flow Rate 97.9 F 68 16 131/73 96 Nasal Cannula 2 11/15/24 07:34 11/15/24 07:34 11/15/24 07:34 11/15/24 07:34 11/15/24 07:34 11/15/24 07:34 11/15/24 07:34 Laboratory Results - last 24 hr 11/14/24 15:30: Urine Color Yellow, Urine Appearance Clear, Urine pH 8.0, Ur Specific [place] 1.020, Urine Protein Negative, Urine Glucose (UA) Negative, Urine Ketones Negative, Urine Blood 1+ A, Urine Nitrate Negative, Urine Bilirubin Negative, Urine Urobilinogen 0.2, Ur Leukocyte Esterase Negative, Urine RBC Occasional, Urine WBC None, Ur Squamous Epith Cells None, Urine Bacteria None 11/14/24 16:02: WBC 13.1 H, RBC 4.76, Hgb 14.6, Hct 42.6, MCV 89.5, MCH 30.7, MCHC 34.3, RDW 12.6, Plt Count 195, MPV 9.9, Neut % (Auto) 74.3, Lymph % (Auto) 19.1, [place] % (Auto) 5.5, Eos % (Auto) 0.3, Baso % (Auto) 0.5, Neut # (Auto) 9.7 H, Lymph # (Auto) 2.5, [place] # (Auto) 0.7, Eos # (Auto) 0.0, Baso # (Auto) 0.1, Sodium 138, Potassium 3.8, Chloride 104, Carbon Dioxide 29, Anion Gap 8.8, BUN 11, Creatinine 1.00, Estimated Creat Clear 101, Estimated GFR 80, Est GFR ( Amer) 97, Glucose 107 H, Lactate 1.8, Calcium 9.1, Total Bilirubin 1.1, AST 47, ALT 49, Alkaline Phosphatase 90, Troponin I < 0.01, NT-Pro-B Natriuret Pep 29.0, Total Protein 7.7, Albumin 4.6, Globulin 3.1, Albumin/Globulin Ratio 1.5, Lipase 101, HCV Ab MICHEAL w/Rflx PCR Qn Negative, HIV Ag/Ab Combo Qual Negative 11/14/24 18:44: Urine Color Yellow, Urine Appearance Clear, Urine pH 7.5, Ur Specific [place] 1.010, Urine Protein Negative, Urine Glucose (UA) Negative, Urine Ketones Negative, Urine Blood 2+ A, Urine Nitrate Negative, Urine Bilirubin Negative, Urine Urobilinogen 0.2, Ur Leukocyte Esterase Negative, Urine RBC 5-10, Urine WBC Occasional, Ur Squamous Epith Cells Occasional, Urine Bacteria None 11/14/24 22:09: Troponin I < 0.01 11/15/24 06:05: WBC 12.5 H, RBC 4.27 L, Hgb 12.9 L D, Hct 38.9 L, MCV 91.1, MCH 30.2, MCHC 33.2, RDW 13.1, Plt Count 167, MPV 10.2, Neut % (Auto) 80.0, Lymph % (Auto) 12.6, [place] % (Auto) 6.3, Eos % (Auto) 0.2, Baso % (Auto) 0.2, Neut # (Auto) 10.0 H, Lymph # (Auto) 1.6, [place] # (Auto) 0.8, Eos # (Auto) 0.0, Baso # (Auto) 0.0, Sodium 135 L, Potassium 4.2, Chloride 102, Carbon Dioxide 26, Anion Gap 11.2, BUN 14 D, Creatinine 1.10, Estimated Creat Clear 131, Estimated GFR 72, Est GFR ( Amer) 87, Glucose 122 H, Calcium 8.1 L I & O for Last 24 hours: Intake & Output 11/12/24 11/13/24 11/14/24 11/15/24 11:59 11:59 11:59 11:59 Intake Total 1780 / 1780 Output Total 450 / 450 Balance 1330 / 1330 Weight 244 lb 1.6 oz Constitutional Constitutional: no acute distress *Routine Respiratory Exam Respiratory: Absent respiratory distress *Routine Cardiovascular Exam Cardiovascular: Absent tachycardia *Routine Abdominal Exam Comments: Dressing intact. No spreading cellulitis. Progress Note: A&P Assessment and plan (1) Appendicitis: Status: Acute Assessment and plan: Overall, doing fairly well postoperative day 1 status post laparoscopic appendectomy for suppurative appendicitis. Complete short course of antibiotics secondary to suppurative nature of appendicitis Advance diet Possible discharge home later today (2) Hypertension: Status: Chronic Assessment and plan: Home medications (3) Hepatic steatosis: Status: Acute (4) Epigastric pain: Status: Acute Assessment and plan: Proton pump inhibition
[2024-11-15] MEDS: ALLOPURINOL 300MG TABLET 300 MG PO (09:13)
[2024-11-15] MEDS: IRBESARTAN 150MG TAB 150 MG PO (09:13)
[2024-11-15] MEDS: BISOPROLOL 5MG TABLET 5 MG PO (09:13)
--- NOTE | 2024-11-15 11:29 | EXP.DC.SUM ---
General Admission date:: 11/14/24 Discharge date: 11/15/24 HPI HPI HPI: This is a 44-year-old gentleman who presented to the emergency department with increasing abdominal pain. Evaluation included a CT scan that revealed changes consistent with appendicitis. Surgical service was consulted for evaluation and management. Forwarded from emergency department evaluation: HPI narrative: 44-year-old male presents to the emergency department accompanied by his spouse for a less than 24-hour history of midepigastric abdominal pain, describes it as cramping and burning . P.o. intake versus no p.o. intake does not worsen the patient's symptomatology, patient denies any fever or chills, denies any chest pain shortness of breath, denies any nausea vomiting denies any constipation diarrhea no urinary type symptomatology, patient is a non-smoker denies any alcohol or drug use, patient states that the pain started around 10 PM last night, improved, and worsened again at 5 AM, she he is taking Gas-X with little to no relief of his symptomatology, other past medical history consistent with diverticulosis, hypertension, gout, previous history of nephrolithiasis. Initial triage vitals unremarkable. Hospital Course Hospital Course Hospital Course: The patient underwent laparoscopic appendectomy. Please see operative report for detail. Postoperatively he convalesced well. He was maintained on Zosyn during the immediate postoperative period. On the morning of postoperative day 1 he was deemed appropriate for discharge with close outpatient follow-up. He was ambulating without difficulty and tolerating advancement of his diet. Note: The decision to complete a short-course of Augmentin was made secondary to the suppurative nature of his appendicitis. Exam Data for Last 24 hours Vital signs and Labs for Last 24 Hours: Temp Pulse Resp BP Pulse Ox O2 Del Method O2 Flow Rate 97.9 F 68 16 131/73 96 Room Air 2 11/15/24 07:34 11/15/24 07:34 11/15/24 07:34 11/15/24 07:34 11/15/24 07:34 11/15/24 08:44 11/15/24 07:34 Laboratory Results - last 24 hr 11/14/24 15:30: Urine Color Yellow, Urine Appearance Clear, Urine pH 8.0, Ur Specific [place] 1.020, Urine Protein Negative, Urine Glucose (UA) Negative, Urine Ketones Negative, Urine Blood 1+ A, Urine Nitrate Negative, Urine Bilirubin Negative, Urine Urobilinogen 0.2, Ur Leukocyte Esterase Negative, Urine RBC Occasional, Urine WBC None, Ur Squamous Epith Cells None, Urine Bacteria None 11/14/24 16:02: WBC 13.1 H, RBC 4.76, Hgb 14.6, Hct 42.6, MCV 89.5, MCH 30.7, MCHC 34.3, RDW 12.6, Plt Count 195, MPV 9.9, Neut % (Auto) 74.3, Lymph % (Auto) 19.1, [place] % (Auto) 5.5, Eos % (Auto) 0.3, Baso % (Auto) 0.5, Neut # (Auto) 9.7 H, Lymph # (Auto) 2.5, [place] # (Auto) 0.7, Eos # (Auto) 0.0, Baso # (Auto) 0.1, Sodium 138, Potassium 3.8, Chloride 104, Carbon Dioxide 29, Anion Gap 8.8, BUN 11, Creatinine 1.00, Estimated Creat Clear 101, Estimated GFR 80, Est GFR ( Amer) 97, Glucose 107 H, Lactate 1.8, Calcium 9.1, Total Bilirubin 1.1, AST 47, ALT 49, Alkaline Phosphatase 90, Troponin I < 0.01, NT-Pro-B Natriuret Pep 29.0, Total Protein 7.7, Albumin 4.6, Globulin 3.1, Albumin/Globulin Ratio 1.5, Lipase 101, HCV Ab MICHEAL w/Rflx PCR Qn Negative, HIV Ag/Ab Combo Qual Negative 11/14/24 18:44: Urine Color Yellow, Urine Appearance Clear, Urine pH 7.5, Ur Specific [place] 1.010, Urine Protein Negative, Urine Glucose (UA) Negative, Urine Ketones Negative, Urine Blood 2+ A, Urine Nitrate Negative, Urine Bilirubin Negative, Urine Urobilinogen 0.2, Ur Leukocyte Esterase Negative, Urine RBC 5-10, Urine WBC Occasional, Ur Squamous Epith Cells Occasional, Urine Bacteria None 11/14/24 22:09: Troponin I < 0.01 11/15/24 06:05: WBC 12.5 H, RBC 4.27 L, Hgb 12.9 L D, Hct 38.9 L, MCV 91.1, MCH 30.2, MCHC 33.2, RDW 13.1, Plt Count 167, MPV 10.2, Neut % (Auto) 80.0, Lymph % (Auto) 12.6, [place] % (Auto) 6.3, Eos % (Auto) 0.2, Baso % (Auto) 0.2, Neut # (Auto) 10.0 H, Lymph # (Auto) 1.6, [place] # (Auto) 0.8, Eos # (Auto) 0.0, Baso # (Auto) 0.0, Sodium 135 L, Potassium 4.2, Chloride 102, Carbon Dioxide 26, Anion Gap 11.2, BUN 14 D, Creatinine 1.10, Estimated Creat Clear 131, Estimated GFR 72, Est GFR ( Amer) 87, Glucose 122 H, Calcium 8.1 L I & O for Last 24 hours: Intake & Output 11/12/24 11/13/24 11/14/24 11/15/24 11:59 11:59 11:59 11:59 Intake Total 1880 / 1880 Output Total 850 / 850 Balance 1030 / 1030 Weight 244 lb 1.6 oz Constitutional Constitutional: no acute distress *Routine HEENT Exam Head: Present normocephalic Eye: Present EOMI ENT: Present mucous membranes moist *Routine Neck Exam Neck: Present full ROM Routine Chest/Breast/Axilla Exam Chest wall: Absent tenderness *Routine Respiratory Exam Respiratory: Absent respiratory distress *Routine Cardiovascular Exam Cardiovascular: Absent tachycardia *Routine Abdominal Exam Abdominal: Present soft *Routine Rectal Exam Patient deferred: visual exam *Routine Exam Patient deferred: penile exam *Routine Extremities Exam Extremities: Present full ROM Routine Back/Spine/Pelvis Exam Back/Spine: Present full ROM *Routine Skin Exam Skin: Absent erythema *Routine Neurological Exam Neurological: Present alert and oriented X3 Routine Psychiatric Exam Psychiatric: Present normal affect Results Data Completed and Pending Labs on day of discharge: Labs from last 24 hours 11/15/24 11/14/24 11/14/24 06:05 22:09 18:44 WBC 12.5 H RBC 4.27 L Hgb 12.9 L D Hct 38.9 L MCV 91.1 MCH 30.2 MCHC 33.2 RDW 13.1 Plt Count 167 MPV 10.2 Neut % (Auto) 80.0 Lymph % (Auto) 12.6 [place] % (Auto) 6.3 Eos % (Auto) 0.2 Baso % (Auto) 0.2 Neut # (Auto) 10.0 H Lymph # (Auto) 1.6 [place] # (Auto) 0.8 Eos # (Auto) 0.0 Baso # (Auto) 0.0 Sodium 135 L Potassium 4.2 Chloride 102 Carbon Dioxide 26 Anion Gap 11.2 BUN 14 D Creatinine 1.10 Estimated Creat Clear 131 Estimated GFR 72 Est GFR ( Amer) 87 Glucose 122 H Lactate Calcium 8.1 L Total Bilirubin AST ALT Alkaline Phosphatase Troponin I < 0.01 NT-Pro-B Natriuret Pep Total Protein Albumin Globulin Albumin/Globulin Ratio Lipase Urine Color Yellow Urine Appearance Clear Urine pH 7.5 Ur Specific [place] 1.010 Urine Protein Negative Urine Glucose (UA) Negative Urine Ketones Negative Urine Blood 2+ A Urine Nitrate Negative Urine Bilirubin Negative Urine Urobilinogen 0.2 Ur Leukocyte Esterase Negative Urine RBC 5-10 Urine WBC Occasional Ur Squamous Epith Cells Occasional Urine Bacteria None HCV Ab MICHEAL w/Rflx PCR Qn HIV Ag/Ab Combo Qual 11/14/24 11/14/24 16:02 15:30 WBC 13.1 H RBC 4.76 Hgb 14.6 Hct 42.6 MCV 89.5 MCH 30.7 MCHC 34.3 RDW 12.6 Plt Count 195 MPV 9.9 Neut % (Auto) 74.3 Lymph % (Auto) 19.1 [place] % (Auto) 5.5 Eos % (Auto) 0.3 Baso % (Auto) 0.5 Neut # (Auto) 9.7 H Lymph # (Auto) 2.5 [place] # (Auto) 0.7 Eos # (Auto) 0.0 Baso # (Auto) 0.1 Sodium 138 Potassium 3.8 Chloride 104 Carbon Dioxide 29 Anion Gap 8.8 BUN 11 Creatinine 1.00 Estimated Creat Clear 101 Estimated GFR 80 Est GFR ( Amer) 97 Glucose 107 H Lactate 1.8 Calcium 9.1 Total Bilirubin 1.1 AST 47 ALT 49 Alkaline Phosphatase 90 Troponin I < 0.01 NT-Pro-B Natriuret Pep 29.0 Total Protein 7.7 Albumin 4.6 Globulin 3.1 Albumin/Globulin Ratio 1.5 Lipase 101 Urine Color Yellow Urine Appearance Clear Urine pH 8.0 Ur Specific [place] 1.020 Urine Protein Negative Urine Glucose (UA) Negative Urine Ketones Negative Urine Blood 1+ A Urine Nitrate Negative Urine Bilirubin Negative Urine Urobilinogen 0.2 Ur Leukocyte Esterase Negative Urine RBC Occasional Urine WBC None Ur Squamous Epith Cells None Urine Bacteria None HCV Ab MICHEAL w/Rflx PCR Qn Negative HIV Ag/Ab Combo Qual Negative DS: Diagnosis Discharge Diagnosis (1) Appendicitis: Status: Acute Code(s): K37 - Unspecified appendicitis Qualifiers: Acute appendicitis type: with localized peritonitis Appendicitis abscess presence: without abscess Appendicitis gangrene presence: without gangrene Appendicitis perforation presence: without perforation Appendicitis type: acute appendicitis Qualified Code(s): K35.30 - Acute appendicitis with localized peritonitis, without perforation or gangrene (2) Hypertension: Status: Chronic Code(s): I10 - Essential (primary) hypertension Qualifiers: Hypertension type: unspecified Qualified Code(s): I10 - Essential (primary) hypertension (3) Hepatic steatosis: Status: Acute Code(s): K76.0 - Fatty (change of) liver, not elsewhere classified (4) Epigastric pain: Status: Acute Code(s): R10.13 - Epigastric pain Meds Home Medications and Allergies Home Medications ?Medication ?Instructions ?Recorded ?Confirmed ?Type allopurinol 300 mg tablet 300 mg PO DAILY 11/14/24 11/14/24 History bisoprolol 5 1 tab PO DAILY 11/14/24 11/14/24 History mg-hydrochlorothiazide 6.25 mg tablet losartan 100 mg tablet 100 mg PO DAILY 11/14/24 11/14/24 History amoxicillin 500 mg-potassium 1 tab PO TID #15 tabs 11/15/24 Rx clavulanate 125 mg tablet (Augmentin) hydrocodone 5 mg-acetaminophen 325 1 tab PO Q6H PRN post-op pain #17 11/15/24 Rx mg tablet tabs New Prescriptions to Start Prescriptions: amoxicillin-pot clavulanate [Augmentin] Vaughn Llamas hydrocodone-acetaminophen Vaughn Llamas Allergies Allergy/AdvReac Type Severity Reaction Status Date / Time No Known Allergies Allergy Verified 08/26/24 13:08 Discharge Plan Disposition Patient Disposition: Home, Self-Care Condition: Fair Follow up Plan Follow up with: Stephon Sen MD [Primary Care Provider, Internal Medicine] - See instructions Vaughn Llamas MD [Staff Physician, General Surgery] - 11/18/24 Prescriptions/Medication Reconciliation: New hydrocodone-acetaminophen 5-325 mg tablet 1 tab PO Q6H PRN (Reason: post-op pain) Qty: 17 0RF amoxicillin-pot clavulanate [Augmentin] 500-125 mg tablet 1 tab PO TID Qty: 15 0RF Continued bisoprolol-hydrochlorothiazide 5-6.25 mg tablet 1 tab PO DAILY allopurinol 300 mg tablet 300 mg PO DAILY losartan 100 mg tablet 100 mg PO DAILY Problem Reconciliation Problems Reviewed?: Yes Patient Discharge Instructions ACTIVITY: Ambulate as tolerated and No heavy lifting DIET: advance to your usual diet Additional Instructions: Remove dressings and shower after 48 hours Patient Instructions: DI for Acute Abdominal Pain, Stop Light Infection Print Language: Amharic Providers Primary Care Provider: Stephon Sen Admit Provider: Vaughn Llamas Attending Provider: Vaughn Llamas
--- NOTE | 2024-11-16 08:58 | EXP.ANES.II ---
[facility] Anesthesia Record Part II Anesthesia Record Part II Discharge Time: 20:47 Destination: Medical Surgical Department PACU nurse assessment reviewed?: Yes Patient Condition:: Good Anesthesia Complications:: None Swallowing reflex intact?: Yes Airway Patency: Patent Cyanosis?: No Blood Pressure: 133/80 SaO2: 99 Respiratory Rate: 17 Pulse Rate: 90 Temperature: 98.7 F Mental Status: Alert & Oriented Pain level:: 0 Nausea and/or vomitting:: None Intake, IV Amount: 0 Hydration: Adequate
[2024-11-16 08:59] VITALS: BP 133/80; PULSE 90; RESP 17; TEMP 37.1; O2SAT 99
--- NOTE | 2024-11-17 10:24 | SW/DCPLANNER ---
Spoke with patient on the phone. Patient stated that he is doing good. Patient stated that he is aware of his upcoming appointment. Patient stated that he was able to get his new medicine picked up from the pharmacy. Patient stated that he has new insurance and gave me the numbers. Patient stated that he has no concerns or questions at this time. Timur Jean
== END 2024-11-15 12:18 | disposition home or self-care (01) ==
LOC: ER 17:24 → SDC 18:32 → 2ND 20:57
PROVIDERS: Physician Assistant; Admitting Provider Surgery; Emergency Provider Student in an Organized Health Care Education/Training Program; PCP Family Medicine; Visit Provider Surgery
PROC: 0DTJ4ZZ Resection of Appendix, Percutaneous Endoscopic Approach (ICD-10-PCS; CPT 44970; principal; 2024-11-14 18:30)
DX: K35.30 Acute appendicitis with localized peritonitis, without perforation or gangrene (principal); I10 Essential (primary) hypertension; K76.0 Fatty (change of) liver, not elsewhere classified; M10.9 Gout, unspecified; Z90.49 Acquired absence of other specified parts of digestive tract; Z79.899 Other long term (current) drug therapy
CPT/HCPCS: 44970; 36415; 51702; 74177; 80048; 80053; 81001; 83605; 83690; 83880; 84484; 85025; 86803; 87389; 93005; 96365; 96366; 96367; 96374; 96375; 99285; G0378; J0696; J1100; J1171; J1200; J1836; J1885; J2003; J2250; J2270; J2405; J2543; J2704; J3010; Q9967